=== PATIENT | female | born 1960 | race Caucasian/White ===

== ENCOUNTER 2024-02-24 10:33 | Outpatient (AMB) | payer MEDICARE, SELFPAY ==
--- NOTE | 2024-02-24 11:25 | MHC.OFFVIS ---
Vital Signs 02/24/24 11:29 Height 5 ft 5 in Weight 142 lb 13.753 oz BMI 23.8 BP 124/80 Blood Pressure Location Lt brachial Position Sitting Pulse 86 Pulse Source Pulse Oximeter Temp 97 F Intake Visit Reasons: SS/CM Intake Note: Patient is here for follow up appointment for Sjogren's and osteoarthritis. Allergies oxycodone Allergy (Severe, Verified 02/24/24 11:33) short of breath esomeprazole Adverse Reaction (Mild, Verified 02/24/24 11:33) darkened urine cefzil Allergy (Mild, Uncoded 02/24/24 11:33) rash arithrimycin Allergy (Unknown, Uncoded 02/24/24 11:33) Rash HPI HPI SS/CM: Details: She has been experiencing dry mouth. She has been using Savella mean 30 mg b.i.d. with benefit. She is able to swallow better. During the summer time she was having excessive sweating which has been bothering her since being on Cevimeline . In the past she has not found benefit on pilocarpine. She has also tried [id number] options for dry mouth such as Biotene products without benefit. She is experiencing generalized pain and hand pain intermittently. Denies any joint swelling. She was recently diagnosed with vaginal lichen planus and has been treated with topical steroid with benefit. Denies any new fevers, recent infections, Raynaud's phenomenon or any new rashes. [facility] Medical History (Updated 02/24/24 @ 22:23 by Pranav Soto MD) H/O Sjogren's disease Surgical History (Updated 02/24/24 @ 11:40 by Khushboo Conklin CMA) H/O dilation and curettage Hx of cholecystectomy [place] teeth removed Family History (Updated 02/24/24 @ 11:43 by Khushboo Conklin CMA) Mother Osteoarthritis Osteoporosis Hypertension Glaucoma Father Hypertension Osteoporosis Heart disease Brother Hypertension Multiple myeloma Review of Systems Const All systems reviewed & are unremarkable except as noted in HPI and below Physical Exam Vital Signs: Last Vital Signs Temp 97 F 02/24/24 11:29 Pulse 86 02/24/24 11:29 BP 124/80 02/24/24 11:29 BMI result Body Mass Index 23.8 Const Other: General: Comfortable CVS: RRR Respiratory: clear to auscultation bilaterally. Good respiratory effort Skin: No lesions seen Lymph nodes: No cervical lymphadenopathy present MSK: No tenderness of any joints. No synovitis. Good range of motion upper extremity and lower extremity. Assessment & Plan Assessment & Plan (1) Sjogren syndrome: Comment: History of Sjogren syndrome biopsy-proven with negative serologies CRISTOBAL/SSA/SSB. Pilocarpine ineffective for dry mouth. Cevimeline 01/10/2023 to present provides benefit because his diaphoresis, which is tolerable at this time. Code(s): M35.00 - Sjogren syndrome, unspecified Category: Medical Qualifiers: Sjogren organ or system involvement: without extraglandular involvement Qualified Code(s): M35.00 - Sjogren syndrome, unspecified Plan: Continue cevimeline 30 mg b.i.d. Labs for disease monitoring ordered She will continue to follow up with Ophthalmology for management of dry eyes Return to clinic in 3 months (2) Osteoarthritis of hands, bilateral: Comment: Clinical diagnosis with subluxation of 5th DIPs with Heberden nodes left hand. She has had benefit with diclofenac gel and OT. No synovitis on exam to suggest active inflammatory arthritis secondary to Sjogren syndrome. Code(s): M19.041 - Primary osteoarthritis, right hand; M19.042 - Primary osteoarthritis, left hand Category: Medical Qualifiers: Osteoarthritis type: primary Qualified Code(s): M19.041 - Primary osteoarthritis, right hand; M19.042 - Primary osteoarthritis, left hand Plan: Continue to use diclofenac gel as needed We discussed importance of having a regular exercise program. She will be more consistent with exercises learned from occupational therapy. I also recommended looking into the schedule of her local senior center for exercise classes. 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: Code(s): Z79.899 - Other fdc (current) drug therapy Category: Medical Plan: See above Orders: Orders Alanine Aminotransferase Today M35.00 - Sjogren syndrome, unspecified Aspartate Amino Transferase Today M35.00 - Sjogren syndrome, unspecified Complement C3 Today M35.00 - Sjogren syndrome, unspecified Erythrocyte Sedimentation Rate Today M35.00 - Sjogren syndrome, unspecified Creatinine Today M35.00 - Sjogren syndrome, unspecified C Reactive Protein Today M35.00 - Sjogren syndrome, unspecified Complement C4 Today M35.00 - Sjogren syndrome, unspecified Complete Blood Count Auto Diff Today M35.00 - Sjogren syndrome, unspecified Medications: New cevimeline 1 cap PO BID 90 caps 3RF Coding Level of Care Code Est Pt Level 4 (15647) Complex EM visit Add On G2211 Diagnoses Sjogren's syndrome without extraglandular involvement M35.00 Sjogren organ or system involvement: without extraglandular involvement Primary osteoarthritis of both hands M19.041; M19.042 Osteoarthritis type: primary 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
[2024-02-24 11:29] VITALS: BP 124/80; PULSE 86; TEMP 36.1; BMI 23.8
--- OUTSIDE RECORDS SUMMARY | 2024-03-02 12:40 | XMS_ITS | Continuity of Care Document ---
Author Organization [facility] Address [address] [place] [address] Phone Care Team Providers Care Schedule Supervisor Name Role Phone Laurent PEDERSON, Vinny Unavailable Unavailable Allergies, Adverse Reactions, Alerts Substance Reaction Status Criticality MOXIFLOXACIN HCL Active No Informat ion DEMECLOCYCLINE HCL Active No Inform ation lansoprazole Active No Information erythromycin base Active No Informa tion cefprozil Active No Information Medications Medication Instructions Dosage Effective Dates (start - stop) Status Comments Systane Ultra 0.4 %-0.3 % eye drops - Active prednisone 5 mg tablet - Active Symbicort 80 mcg-4.5 mcg/actuation HFA aerosol inhaler - Active CLARITIN (unknown strength) Not Available - Active VITAMIN D3 (unknown strength) Not Available - Active Procedures Procedure Date OFFICE/OUTPATIENT VISIT, EST Ophthal DX Image Post Retina I And R Uni Or Bi OFFICE/OUTPATIENT VISIT, NEW Advance Directives Directive Yes / No Effective Date File Name No Information Encounters Encounter Description Practice Location Reason(s) For Visit Diagnoses Date Provider Providers Copied on Encounter OFFICE/OUTPA TIENT VISIT, EST 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 [address] [place], [id number] . [phone] Specialist: Dwayne Rausch, [address] [place], [address]. tel:[phone] Provider: Eh Perez, [address] [facility], [place], [address]. tel:[phone] ring Provider: No Ref Doc No Referring Doc. OFFICE/OUTPA TIENT VISIT, NEW [facility], [address] [place], [address], tel:[phone] [facility] VISUAL DISTURBANCES NECLENS REPLACEMENT NECHistoplasmosis with chorioretinitisVITRE OUS DEGENERATIONALLERGY, UNSPECIFIEDBLEPHARIT IS NOS 4 Miracle Rice. [address] [place], [place], [id number] , . [phone] Referring Provider: Moy Landon P, [address] [facility] [address], [place], [address]. tel:[phone] Family History Family Member Type Diagnosis Age At Onset Brother Problem (finding) Retinal disease Brother Problem (finding) cataract Father Problem (finding) cataract Mother Problem (finding) Retinal disease Father Problem (finding) Retinal disease Mother Problem (finding) cataract Mother Problem (finding) Cancer Mother Problem (finding) glaucoma Payers Payer name Insurance type Covered constitution party ID Theodora jimenez(s) [employer] - [id number] Social History Type Description Quantity Date Captured Comments Alcohol Use Details No Caffeine Use Details Unknown Tobacco Use Status Never smoked tobacco 2014 Smoking Status Never smoker Non-Smoking Tobacco Use Details : No Details Available : No Details Available Sex Female Chief Complaint And Reason For Visit From encounter dated '06/30/2014 13:00'. retinal exam (chief complaint). Description: The 53 year old female presents for evaluation of retinal exam in the right and left eyes. It started about 1-2 years ago. The onset was progressive. It happens all of the time. The patient feels it is moderate. The condition is described as blurry vision ou. Patient denies flashes. Associated symptoms include: floaters ou. Patient has a history of cataract surgery ou and yag laser os x 2 in last year with Dr. Perez. Per pateint she has also had PVDou and is still having issues from this and from cataract surgery. She feels that there is a constant variable cloudiness that moves around. Reason For Referral Reason For Referral No Information History Of Present Illness Encounter Date Complaint History Of Prese nt Illness retinal exam The 53 year old female presents for evaluation of retinal exam in the right and left eyes. It started about 1-2 years ago. The onset was progressive. It happens all of the time. The patient feels it is moderate. The condition is described as blurry vision ou. Patient denies flashes. Associated symptoms include: floaters ou. Patient has a history of cataract surgery ou and yag laser os x 2 in last year with Dr. Perez. Per pateint she has also had PVD ou and is still having issues from this and from cataract surgery. She feels that there is a constant variable cloudiness that moves around. Functional Status Date Functional Assessmen t No Information Instructions Date Instruction Additional Infor noelle - PRN to [facility] retina service, follow up with Dr. Perez in [place] Related to See impression details - Reviewed the natur al history of ERM and vitreoretinal interface disorders. Recommended AMSLER screening. Patient to call if any change in visual functioning. Discussed options for managment including observation versus surgery. Discussed benefits, risks, alternatives and complications of surgery versus continued observation but given 20/20 vision and no distortion suggest conservative approach. Macular HB OCT OU. [facility] natural history reviewed and discussed treatment options Discussed use of regular Amsler screening. Instructed patient to call for Amsler change. HB Macular OCT OU. Reviewed the natural history of PVD vitreous changes along with symptoms of floaters and flashing lights. Discussed risk of retinal tear or detachment. Retinal detachment and retinal tear symptoms reviewed. Suggest conservative approach to floaters, discussed options of elective PPV for chronic visually disabling floaters. Suggest continued followup in [place] with her primary eye doctor. Related to See impression details - VISUAL DISTURBANCE S (blurred va) NEC OS- Pseudophakia OU- Histoplasmosis with chorioretinitis OS- VITREOUS DEGENERATION OU- Allergic OU- BLEPHARITIS NOS OU - OU: Educational materials provided:Primary Diagnosis. Her cataract surgeon in [place] recommended enlarging posterior capsulotomy OS - agree the same. Patient has a benign vitreous detachment OU. This may cause floaters and light flashes but is due to a normal condition which occurs over time. Signs and symtpoms of retinal detachment discussed in detail. Patient told to return immediately should symptoms increase. May want retinal consult here regarding floaters. For allergies, d/c Claritan and start Singulair (generic) 10mg qd po, add Lastacaft (sample/coupon given) qd OU. For blepharitis use Dry Eye Marks Benefits - 2 capsules before breakfast/dinner, cont Systane Ultra gtt qid OU. Patient given copy of todays visit. 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
== END 2024-02-24 12:25 | disposition home or self-care (01) ==
PROVIDERS: PCP Internal Medicine; Visit Provider Internal Medicine Rheumatology
DX: M35.00 Sjogren syndrome, unspecified (principal); M19.041 Primary osteoarthritis, right hand; M19.042 Primary osteoarthritis, left hand; Z79.899 Other long term (current) drug therapy
CPT/HCPCS: 99214; G2211

== ENCOUNTER → 2024-02-24 10:33 | Outpatient (BNVA) | payer MEDICARE, SELFPAY | PROVIDERS: PCP Internal Medicine; Visit Provider Internal Medicine Rheumatology | DX: M35.00 Sjogren syndrome, unspecified (principal); M19.042 Primary osteoarthritis, left hand; M19.041 Primary osteoarthritis, right hand; Z79.899 Other long term (current) drug therapy | CPT/HCPCS: 99212 ==

== ENCOUNTER 2024-05-26 10:34 | Outpatient (AMB) | payer MEDICARE, SELFPAY ==
--- NOTE | 2024-05-26 10:36 | MHC.OFFVIS ---
Vital Signs 05/26/24 10:37 Height 5 ft 5 in Weight 142 lb 10.225 oz BMI 23.7 BP 110/80 Blood Pressure Location Lt brachial Position Sitting Pulse 90 Pulse Source Pulse Oximeter Pulse Oximetry (%) 99 Intake Visit Reasons: Follow Up 3mo Intake Note: Patient is here for follow up appointment for Sjogren's and osteoarthritis. Allergies oxycodone Allergy (Severe, Verified 05/26/24 10:36) short of breath esomeprazole Adverse Reaction (Mild, Verified 05/26/24 10:36) darkened urine cefzil Allergy (Mild, Uncoded 02/24/24 11:33) rash arithrimycin Allergy (Unknown, Uncoded 02/24/24 11:33) Rash HPI HPI Follow Up 3mo: Details: She had increase pain with last snow storm. She has been doing exercises learned from OT. Uses heated mits. She is getting over heated with light exercise at home such as doing house chores. Dry mouth is worse. Without cevemiline she has difficulty talking and swallowing. Dx vaginal lichen sclerosis a few months ago with vaginal dryness PFSH Medical History H/O Sjogren's disease Surgical History H/O dilation and curettage Hx of cholecystectomy [place] teeth removed Family History (Updated 05/26/24 @ 10:45 by Vanessa Sanchez CMA) Mother Osteoarthritis Osteoporosis Hypertension Glaucoma Father Hypertension Osteoporosis Heart disease Brother Hypertension Multiple myeloma Review of Systems Const All systems reviewed & are unremarkable except as noted in HPI and below Physical Exam Vital Signs: Last Vital Signs Pulse 90 05/26/24 10:37 BP 110/80 05/26/24 10:37 Pulse Ox 99 05/26/24 10:37 BMI result Body Mass Index 23.7 Const Other: General: Comfortable CVS: RRR Oral: White coating on tongue Respiratory: clear to auscultation bilaterally. Good respiratory effort Skin: No lesions seen Lymph nodes: No cervical lymphadenopathy present MSK: No tenderness of any joints. Heberden nodes present. No synovitis. Good range of motion upper extremity and lower extremity. Assessment & Plan Assessment & Plan (1) Sjogren syndrome: Comment: Dry mouth and swallowing has improved with cevimeline. She continues to have diaphoresis with activity as side effect of cevimeline but it is tolerable. She has a white coating on tongue that represents dehydration. I am not concerned about oral lichen planus or thrush. Rheumatology History: Sjogren syndrome biopsy-proven with negative serologies CRISTOBAL/SSA/SSB. Pilocarpine ineffective for dry mouth and caused diaphoresis. Biotene products in effective. Cevimeline 01/10/2023 to present provides benefit because his diaphoresis, which is tolerable at this time. Code(s): M35.00 - Sjogren syndrome, unspecified Category: Medical Qualifiers: Sjogren organ or system involvement: without extraglandular involvement Qualified Code(s): M35.00 - Sjogren syndrome, unspecified Plan: She will try Biotene toothpaste. A this time she uses tooth paste recommended by dentist for dry mouth She will try XyliMelts Continue cevimeline 30 mg BID Continue hydration Continue daily dental hygiene and regular dental checkups for cavity prevention and cleaning Follow up with Ophthalmology for dry eye management Labs for disease monitoring reviewed 03/01/2024. SPEP ordered today. Return to clinic in 3 months Orders: Orders Protein Electrophoresis, Serum 05/26/24 M35.00 - Sjogren syndrome, unspecified Coding Level of Care Code Est Pt Level 4 (68945) Complex EM visit Add On G2211 Diagnoses Sjogren's syndrome without extraglandular involvement M35.00 Sjogren organ or system involvement: without extraglandular involvement
[2024-05-26 10:37] VITALS: BP 110/80; PULSE 90; O2SAT 99; BMI 23.7
== END 2024-05-26 11:27 | disposition home or self-care (01) ==
PROVIDERS: PCP Internal Medicine; Visit Provider Internal Medicine Rheumatology
DX: M35.00 Sjogren syndrome, unspecified (principal)
CPT/HCPCS: 99214; G2211

== ENCOUNTER 2024-05-26 10:34 | Outpatient (REF) | payer MEDICARE, SELFPAY ==
--- OUTSIDE RECORDS SUMMARY | 2024-05-26 13:58 | XMS_ITS | Data Portability ---
Author Organization [facility], Telehealth Address [address] [facility] [place] [address] Assessment No assessment recorded. Plan of Treatment Reminders Order Date Submit Date Provider Last Modified By Organization Details Last Modified Time Details Appointments None recorded. Lab None recorded. Referral None recorded. Procedures None recorded. Surgeries None recorded. Imaging None recorded. Medication Orders amoxicilli n 875 mg tablet 2018 019 [id number], [address] [place], [address], 9 13:45:51 prednisone 20 mg tablet 2018 019 [id number], [address] [place], [address], 9 15:55:48 Patient TargetsNo targets recorded. Patient InstructionsNo instructions recorded. Reason for Referral None Reported. Problems Name Problem SNOMED Code Status Onset Date Resolution Date Notes Provider Name and Address Organization Details Recorded Time Disorder of gallbladder 96932737 [facility] 9 13:17:56 Problem Notes None recorded. Medical Equipment None Reported. Allergies Allergen ID Allergen Name Allergen Category Reaction Reaction Severity Criticality Documentation Date Start Date Code Code System Note Provider Name and Address Organization Details Recorded Time 665 Cefzil medicatio n hives severe Not available 08/10/2018 41821 1 RxNorm Not Available Not Available Not Available 666 acetamino phen / hydrocodo ne medicatio n other severe Not available 08/10/2018 12318 2 RxNorm Not Available Not Available Not Available 667 Prevacid medicatio n hives severe Not available 08/10/2018 70779 RxNorm Not Available Not Available Not Available Medications Name Sig Start Date Stop Date Status Note LastModified by Organization Details LastModified Time prednisone 20 mg tablet Take 2 tablets every day by oral route for 5 days. 019 active Not Available Not Available Not Avai lable amoxicillin 875 mg tablet Take 1 tablet every 12 hours by oral route for 10 days. 019 active Not Available Not Available Not Avai lable Vitals Date Recorded Body height Body mass index (BMI) Body weight Body temperature Oxygen saturation Oxygen saturation in Arterial blood by Pulse oximetry Heart rate Systolic blood pressure Diastolic blood pressure Provider Name and Address Organization Details Last Updated DateTime 9 167.64 cm 21.3 kg/m2 33112.1 9 g 98.9 [degF] 93 % 93 % 87 /min 118 mm[Hg] 80 mm[Hg] Ayana Wade [facility] 9 13:22:01 Social History Question Answer Notes LastModified by Organizat ion Details LastModified Time Tobacco Smoking Status Never Smoker Ayana dickerson, [facility] 08/10/2018 13:18:57 What Is Your Level Of Alcohol Consumption? None [email or web address] Information not available 08/10/2018 What Was The Date Of Your Most Recent Tobacco Screening? 08/10/2018 Information n ot available 10/15/2018 Sex: Unknown Functional Status None recorded. Mental Status None recorded. Family History Relationship Description Onset Age of this Age Resolved Age Notes LastModified by Organization Details LastModified Time Unspecified Relation Heart disease [email or web address] Not available 08/10 13:19:16 Medical History No medical history recorded. Gynecological HistoryNo gynecological history recorded. Obstetrics History GPAL:G 0 P 0 0 0 0 Past Encounters Encounter ID Performer Location Encounter Start Date Encounter Closed Date Diagnosis/Indication Diagnosis SNOMED-CT Code Diagnosis ICD10 Code Diagnosis Note [id number] Poncho Bryant PA-C [facility] [address] [place] [address] 08/10/2018 12:54:08 08/10/2018 13:48:45 Acute right otitis media 491714043 H66.91 patient reports a lot of GI sensitivit ies to a variety of antibiotic s so she refuses to use augmentin, azithromyc in, doxy and she has an allergy to cephalospo rins. Health Concerns Section Related Observation LastModified by Organization Detai ls LastModified Time None Recorded Concern Status LastModified by Organization Details LastModified Time None Recorded Advance Directives Directive None Recorded Payers Encounter Date Sequence Insurance Name Policy Number Policy Nichole Covered Member ID Nichole Member ID Guarantor Name 08/10/2018 1 [employer] [id number] Bronwyn Samuels [id number] Bronwyn Samuels Notes Date Note Type Note Provider Name and Address Organization Details Recorded Time 08/10/2018 text/html EaracheReported bypatient.Location:[facility] Quality:aching; throbbing History of recurrent ear infections and serous otitis media, right sided neurosensory hearing loss, being followed by ENT. Had infection about a week before flying down here, ENT stated fluid and infection was gone prior to flying, however she started to have some fullness in the right ear and the fligth was extremely painful for her. Pain is still moderate to severe at times, feels clogged, as mentioned she has baseline hearing loss in that side already but reports more hearing loss right now. Denies fever, chills, bodyaches, runny nose, cough. Poncho Bryant PA-C [address] [place], [address], [facility] - [facility] 08/11/2018 13:42:33 OBGyn Episode No OBEpisode recorded.
[2024-05-27 22:03] LABS: Prot Elec - Albumin 4.2 g/dL (3.8-4.8); Prot Elec - Alpha1 0.3 g/dL (0.2-0.3); Prot Elec - Alpha2 0.8 g/dL (0.5-0.9); Prot Elec - Beta 1 0.4 g/dL (0.4-0.6); Prot Elec - Beta 2 0.4 g/dL (0.2-0.5)
== END 2024-05-26 10:35 | disposition home or self-care (01) ==
LOC: HO.HKASLDS 10:34
PROVIDERS: PCP Internal Medicine; Visit Provider Internal Medicine Rheumatology
DX: M35.00 Sjogren syndrome, unspecified (principal)
CPT/HCPCS: 36415; 84165; 99212

== ENCOUNTER 2024-09-14 13:53 | Outpatient (REF) | payer MEDICARE, SELFPAY ==
[2024-09-14 18:51] LABS: C Reactive Protein 0.11 mg/dL (< or = 0.50); Magnesium 2.2 mg/dL (1.6-2.6)
[2024-09-14 20:10] LABS: Erythrocyte Sedimentation Rate 8 MM/HR (0-20)
== END 2024-09-14 13:54 | disposition home or self-care (01) ==
LOC: HO.HKASLDS 13:53
PROVIDERS: PCP Internal Medicine; Visit Provider Internal Medicine Rheumatology
DX: R25.2 Cramp and spasm (principal); M35.00 Sjogren syndrome, unspecified; Z79.899 Other long term (current) drug therapy
CPT/HCPCS: 36415; 82310; 83735; 84132; 85652; 86140; 99212

== ENCOUNTER 2024-09-14 13:53 | Outpatient (AMB) | payer MEDICARE, SELFPAY ==
[2024-09-14 13:53] VITALS: BP 120/72; PULSE 105; O2SAT 98; BMI 23.5
--- NOTE | 2024-09-14 13:53 | A.OFFVIS_ITS ---
Vital Signs 09/14/24 13:53 Height 5 ft 5 in Weight 141 lb BMI 23.5 BP 120/72 Blood Pressure Location Lt brachial Position Sitting Pulse 105 H Pulse Source Pulse Oximeter Pulse Oximetry (%) 98 Oxygen Delivery Method Room Air Intake Visit Reasons: 3 months Intake Note: Patient is here for follow up appointment for Sjogren's and osteoarthritis. Accompanied by: Self / Same As Patient Allergies oxycodone Allergy (Severe, Verified 09/14/24 13:54) short of breath esomeprazole Adverse Reaction (Mild, Verified 09/14/24 13:54) darkened urine cefzil Allergy (Mild, Uncoded 02/24/24 11:33) rash arithrimycin Allergy (Unknown, Uncoded 02/24/24 11:33) Rash HPI HPI 3 months: Details: Hands are cramping. 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 Dry mouth is not controlled. She did not like the way xylimelts felt. Couldn't keep xylimelts sticking to her mucosa. Biotene toothpaste was ineffective. She is tolerating palpitation and diaphoresis that she experiences on cevimeline. General stiffness when getting up and walking. It used to go away but it lasts all day now. Walks regularly when weather allows. [facility] Medical History (Updated 09/14/24 @ 16:15 by Pranav Soto MD) Chronic paronychia of finger Lichen sclerosus H/O Sjogren's disease Surgical History H/O dilation and curettage Hx of cholecystectomy [place] teeth removed Family History Mother Osteoarthritis Osteoporosis Hypertension Glaucoma Father Hypertension Osteoporosis Heart disease Brother Hypertension Multiple myeloma Physical Exam Vital Signs: Last Vital Signs Pulse 105 H 09/14/24 13:53 BP 120/72 09/14/24 13:53 Pulse Ox 98 09/14/24 13:53 Oxygen Delivery Method Room Air 09/14/24 13:53 BMI result Body Mass Index 23.5 Const Other: General: Comfortable CVS: RRR Respiratory: clear to auscultation bilaterally. Good respiratory effort Skin: No lesions seen Lymph nodes: No cervical lymphadenopathy present MSK: No tenderness of any joints. [place] nodes present. No synovitis. Good range of motion upper extremity and lower extremity. 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 Assessment & Plan Assessment & Plan (1) Sjogren syndrome: Comment: Dry mouth and swallowing has improved with cevimeline. She continues to have diaphoresis and palpitations with activity as side effect of cevimeline but it is tolerable. She is followed by Cardiology who recommended that she hydrate throughout the day and has provided her with recommendations for alternatives to drinking water. I discussed that she can skip 1 or 2 doses of cevimeline on consecutive days in the morning when she is experiencing diaphoresis and palpitations that she can not tolerate. Symptoms are worse in the summer due to hot temperatures. She benefits from the dose before bedtime as her symptoms are worse at night. When she was not on cevimeline she had difficulty swallowing, which has not been an issue for her at this time while on treatment. She is experiencing generalized morning stiffness lasting all day. On exam she does not have any signs of inflammatory arthritis associated with Sjogren syndrome. Rheumatology History: Sjogren syndrome biopsy-proven with negative serologies CRISTOBAL/SSA/SSB. Pilocarpine ineffective for dry mouth and caused diaphoresis. Biotene products in effective. Cevimeline 01/10/2023 to present provides benefit because his diaphoresis, which is tolerable at this time. She did not like the taste of xylimelts. Biotene losenges at our gum provides temporary relief. Biotene mouthwash, tooth paste, mouth spray was ineffective. Code(s): M35.00 - Sjogren syndrome, unspecified Category: Medical Qualifiers: Sjogren organ or system involvement: without extraglandular involvement Qualified Code(s): M35.00 - Sjogren syndrome, unspecified Plan: Inflammatory markers ordered Try OTC ACT products for dry mouth Continue cevimeline 30 mg BID. She will skip morning dose when diap horesis/palpitations are not tolerable especially in the hot weather Continue hydration Continue daily dental hygiene and regular dental checkups for cavity prevention and cleaning Follow up with Ophthalmology for dry eye management Labs for disease monitoring reviewed 03/01/2024. SPEP 05/2024 within normal limits. Labs due yearly prior to next appointment We discussed the importance of having a regular exercise program. I encouraged her to check out her local [facility] and [facility] for their monthly program. We also discussed looking into yoga and YouTube for videos that she can do at home regularly. Goal to do 30 minutes of exercise daily in addition to her walks/treadmill Return to clinic in 6 months or sooner if needed (2) Muscle cramp: Comment: Intermittent hand cramping. She hydrates well. I will rule out electrolyte disturbance with labs. Code(s): R25.2 - Cramp and spasm Category: Medical Plan: Electrolytes ordered. If electrolytes are normal, I will add OT for hand strengthening program Return to clinic in 6 months or sooner if needed Orders: Orders Erythrocyte Sedimentation Rate Today R25.2 - Cramp and spasm, Z79.899 - Other residential (current) drug therapy C Reactive Protein Today R25.2 - Cramp and spasm, Z79.899 - Other terminal manager (current) drug therapy Magnesium Today R25.2 - Cramp and spasm Creatinine 6 Months M35.00 - Sjogren syndrome, unspecified C Reactive Protein 6 Months M35.00 - Sjogren syndrome, unspecified Erythrocyte Sedimentation Rate 6 Months M35.00 - Sjogren syndrome, unspecified Complement C3 6 Months M35.00 - Sjogren syndrome, unspecified Rheumatoid Factor 6 Months M35.00 - Sjogren syndrome, unspecified Potassium Today R25.2 - Cramp and spasm Calcium Today R25.2 - Cramp and spasm Complete Blood Count Man Dif 6 Months M35.00 - Sjogren syndrome, unspecified Alanine Aminotransferase 6 Months M35.00 - Sjogren syndrome, unspecified Aspartate Amino Transferase 6 Months M35.00 - Sjogren syndrome, unspecified Complement C4 6 Months M35.00 - Sjogren syndrome, unspecified Protein Electrophoresis, Serum 1 Year M35.00 - Sjogren syndrome, unspecified Coding Level of Care Code Est Pt Level 4 (95398) Complex EM visit Add On G2211 Diagnoses Sjogren's syndrome without extraglandular involvement M35.00 Sjogren organ or system involvement: without extraglandular involvement Muscle cramp R25.2 Time Spent (min) 30
--- OUTSIDE RECORDS SUMMARY | 2024-09-14 16:32 | XMS_ITS | Data Portability ---
Author Organization [place] - [facility], Allergy Address [address] [address] Care Team Providers Care Revenue Field Auditor Name Role Phone DELMIS COLLIER Primary Care Provider [phone] Assessment Encounter Date Assessment Date Assessment LastModified by Organization Details LastModified Time 07/16/2024 07/16/2024 63-year-old female with history of right sided sudden hearing loss in 2017 presents for routine ear cleaning. Cerumen impaction removed bilaterally. Bilateral TMs are intact and scarred with aerated middle ear spaces. She will follow up with Dr. Smith as scheduled. [email or web address] Not available 07/16/2024 14:11:32 08/02/2024 08/02/2024 63yo female with history of right-sided sudden hearing loss, BPPV, and tinnitus presents for evaluation of the ears. She has had constant right sided ear pressure since sudden hearing loss in 2017. She endorses bilateral otalgia, worse positional vertigo, and tinnitus for 4 days since ear cleaning in our office. No improvement with vestibular physical therapy. Otologic exam demonstrates right TM with general retraction, otherwise normal to inspection. Mild neurosensory hearing loss is stable and tympanometry is normal. Recommend continuing vestibular rehabilitation. Will send short course of oral prednisone for suspected eustachian tube dysfunction, and she will continue fluticasone. Patient also evaluated by Dr. Wise. [email or web address] Not available 08/04/2024 06:42:41 08/26/2024 08/26/2024 Patient continues to be frustrated with tinnitus. Discussed some hearing aids have masking settings. She will follow-up with [place] to discuss what features are available on her current aids. Interestingly her hearing has improved and she no longer needs to use the amplification settings. Her fluttering of eustachian tube is not clearly related to her Sjogren's. There is no specific intervention I have for it at this time. At the end of the visit patient request that I examine her back for I appreciated a 5 x 10 cm triangle of raised red papules consistent with shingles. Prescribed valacyclovir 1 g 3 times daily x 7 days [email or web address] Not available 08/26/2024 15:18:12 Plan of Treatment Reminders Order Date Submit Date Provider Last Modified By Organization Details Last Modified Time Details Appointments None recorded. Lab None recorded. Referral None recorded. Procedures None recorded. Surgeries None recorded. Imaging None recorded. Medication Orders valacyclovi r 1 gram tablet 2024 025 [facility]armacy #[id number], [address] [place], [address], 5 15:15:25 prednisone 20 mg tablet 2024 025 [facility]armacy #[id number], [address] [place], [address], 5 14:52:23 Patient TargetsNo targets recorded. Patient InstructionsNo instructions recorded. Reason for Referral None Reported. Results Created Date Observation Date Name Description Value Unit Range Abnormal Flag Note LastModifiedBy Organization Detail LastModifiedTime 08/03/19 25 audio gram No observ ation record ed. BARCODE Not Available 2024 15:52:35 Result Notes None recorded. Problems Name Problem SNOMED Code Status Onset Date Resolution Date Notes Provider Name and Address Organization Details Recorded Time Stomatiti s 84348055 Active 2016 Oral thrush; Note: Date Diagnosed : 11/07/2016 11:17 AM (B37.0) Not Available [facility] 4 02:57:54 Candidias is of mouth 81889168 Active 2016 Oral thrush; Note: Date Diagnosed : 11/07/2016 11:17 AM (B37.0) Not Available [facility] 4 02:57:54 Headache 46156693 Active 2018 Facial pain NOS; Note: Date Diagnosed : 09/08/2018 3:59 PM (R51) Not Available [facility] 4 02:57:55 Chronic sialadeni tis 205172925 Active 2022 Chronic sialoaden itis; Note: Date Diagnosed : 05/01/2022 10:34 AM (K11.23) Not Available [facility] 4 02:57:55 Tinnitus of right ear 24587656190 08 Active 2016 Tinnitus, right ear; Note: Date Diagnosed : 12/30/2016 2:55 PM (H93.11) Not Available [facility] 4 02:57:53 Acute serous otitis media of right ear 37483722313 62165 Active 2018 Acute serous otitis media, right ear; Note: Date Diagnosed : 07/02/2018 12:44 PM (H65.01) Not Available [facility] 4 02:57:54 Nasal congestio n 03291928 Active 2018 Nasal congestio n; Note: Date Diagnosed : 07/02/2018 12:44 PM (R09.81) Not Available [facility] 4 02:57:55 Impacted cerumen of bilateral ears 17692532441 84577 Active 2017 Impacted cerumen, bilateral ; Note: Date Diagnosed : 12/26/2017 1:13 PM (H61.23) Not Available [facility] 4 02:57:53 Sensorine ural hearing loss 37714555 Active 2016 Sensorine ural hearing loss, unilatera l, right ear, with unrestric lissett hearing on the contralat eral side; Note: Date Diagnosed : 07/26/2016 4:17 PM (H90.41) Not Available [facility] 4 02:57:55 Acute maxillary sinusitis 42269787 Active 2019 Acute maxillary sinusitis , unspecifi ed; Note: Date Diagnosed : 07/23/2019 2:32 PM (J01.00) Not Available [facility] 4 02:57:56 Otalgia of right ear 4272828108 Active 2018 Otalgia, right ear; Note: Date Diagnosed : 08/24/2018 2:42 PM (H92.01) Not Available [facility] 4 02:57:55 Abnormal auditory perceptio n 85400413 Active 2018 Other abnormal auditory perceptio ns, unspecifi ed ear; Note: Date Diagnosed : 05/21/2018 12:08 PM (H93.299) Not Available [facility] 4 02:57:56 Acute sinusitis 14039656 Active 2018 Other acute sinusitis ; Note: Date Diagnosed : 07/02/2018 12:44 PM (J01.80) Not Available [facility] 4 02:57:53 Gastroeso phageal reflux disease without esophagit is 401747587 Active 2017 Gastro-es ophageal reflux disease without esophagit is; Note: Date Diagnosed : 06/13/2017 4:38 PM (K21.9) Not Available [facility] 4 02:57:52 Bleeding from nose 161443536 Active 2016 Epistaxis ; Note: Date Diagnosed : 12/30/2016 2:55 PM (R04.0) Not Available [facility] 4 02:57:54 Disorder of right Eustachia n tube 57208094372 45750 Active 2018 Other specified disorders of Eustachia n tube, right ear; Note: Date Diagnosed : 08/24/2018 2:42 PM (H69.81) Not Available [facility] 4 02:57:54 COVID-19 270831232 Active 2022 COVID-19; Note: Date Diagnosed : 05/01/2022 10:34 AM (U07.1) Not Available [facility] 4 02:57:56 Allergic rhinitis 14891666 Active 2019 Other allergic rhinitis; Note: Date Diagnosed : 07/23/2019 2:39 PM (J30.89) Not Available [facility] 4 02:57:56 Sensorine ural hearing loss of bilateral ears 798198342 Active 2024 YULI GARLAND, [facility] 100 [facility] 100, [facility] ellie, [place], [address] , [facility] 5 13:25:20 Hypertrop hy of nasal turbinate s 90896577 Active 2024 BRITTNEY BARNETT PA-C [address], [place], [place], [address] , [facility] - [facility] [place] 5 14:19:05 Moderate persisten t asthma 887128854 Active 2024 BRITTNEY BARNTET PA-C [address], [place], [address] , [facility] - [facility] 5 14:19:05 Chronic sinusitis 17714764 Active 2024 BRITTNEY BARNETT PA-C [address], [place], [address] , [facility] - [facility] 5 14:19:05 Polyp of nasal cavity 851533300 Active 2024 BRITTNEY BARNETT PA-C [address], [place], [place], [address] , [facility] - [facility] 5 14:19:05 Deviated nasal septum 857919087 Active 2024 BRITTNEY BARNETT PA-C [address], [place], [place], [address] , [facility] - [facility] 5 14:19:05 Polypoid sinus degenerat ion 25756766 Active 2024 BRITTNEY BARNETT PA-C [address], [place], [address] , [facility] - [facility] 5 14:19:05 Seasonal allergic rhinitis 124188556 Active 2024 BRITTNEY BARNETT PA-C [address], [place], [address] , [facility] - [facility] 5 14:19:05 Non-aller gic rhinitis 32692976384 1 Active 2024 BRITTNEY BARNETT PA-C [address], [place], [address] , [facility] - [facility] 14:19:05 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, [address] , [facility] - [facility] 14:50:36 Bilateral tinnitus 62625038820 02 Active 2024 CHAPO SMITH MD [address] [facility],[place] [address], [place], [address] , [facility] - [facility] 15:12:07 Herpes zoster 2747693 Active 2024 CHAPO SMITH MD [address] [facility],[place] [address], [place], [address] , [facility] - [facility] 15:14:31 Problem Notes None recorded. Procedures Surgical History Date Name Laterality Status Provider Name and Address Organization Details Recorded Time Comp Audio 83411 completed LESTER HUERTA [address] [facility],[place] [address], [place], [address], [facility] - [facility] 08/02/2024 13:25:10 Cerumen removal without microscope bilat completed JANNETTE HUTCHINS PA-C [address] [facility],[place] [address], [place], [address], [facility] - [facility] 07/16/2024 14:09:43 Imaging Results None recorded. Procedure Notes None recorded. Medical Equipment None Reported. Allergies Allergen ID Allergen Name Allergen Category Reaction Reaction Severity Criticality Documentation Date Start Date Code Code System Note Provider Name and Address Organization Details Recorded Time 643845 cefprozil medicatio n other Not available Not available 08/05/202396489 RxNorm React ion: unkno wn, unspe cifie d;; Not Available [facility] 01:13:58 089100 lansopraz ole medicatio n other Not available Not available 08/05/2023 70050 RxNorm React ion: unkno wn, unspe cifie d;; Not Available [facility] 4 01:14:00 288816 oxycodone medicatio n Not available Not available Not available 08/02/2024 7804 RxNorm RAYA COMI null, [place] - [facility] 5 13:41:18 007477 Prevacid medicatio n Not available Not available Not available 08/02/2024 40828 RxNorm RAYA COMI null, [place] - [facility] 5 13:41:30 512919 erythromy yajaira medicatio n Not available Not available Not available 08/02/2024 4053 RxNorm RAYA COMI null, [place] - [facility] 5 13:41:39 Medications Name Sig Start Date Stop Date Status Note LastModified by Organization Details LastModified Time methocarb poly 500 mg tablet 08/02 completed Medicati on ID: [id number] D uration Value: 30 Brand Name: methocar bamol Se nd Method: E-Prescr ibed Sub s Allowed: subs OK Speci al Instruct ion: TAKE 1 TABLET BY MOUTH TWICE A DAY OR 3 TIMES A DAY Medi cationGe nericNam e: methocar bamol Not Available Not Available Not Available nystatin 100,000 unit/mL oral suspensio n 2016 active Medicati on ID: [id number] P rescribe d By Name: KOLTON Teague nd Name: nystatin Send Method: E-Prescr ibed Sub s Allowed: subs OK Speci al Instruct ion: 5 ml swish and spit four times daily x 2 weeks Me dication GenericN bhupinder: nystatin Not Available Not Available Not Available prednison e 10 mg tablet 08/02 completed Medicati on ID: [id number] D uration Value: 14 Prescri bed By Name: Ryder Roberts nd Name: predniso ne Send Method: E-Prescr ibed Sub s Allowed: subs OK Speci al Instruct ion: 60mg day 1-9, 50mg day 10, 40mg day 11, 30mg day 12, 20mg day 13, 10mg day 14. Medi cationGe nericNam e: predniso ne Not Available Not Available Not Available fluconazo le 150 mg tablet TAKE 1 TABLET BY MOUTH ONCE FOR 1 DAY 08/02 completed Not Available Not Available Not Available valacyclo vir 1 gram tablet TAKE 1 TABLET 3 TIMES A DAY BY ORAL ROUTE FOR 7 DAYS, FOR SHINGLES . active Not Available Not Available No t Available Ativan 1 mg tablet 02/26 completed Medicati on ID: [id number] P rescribe d By Name: Chapo Smith M.D. Bra nd Name: Ativan S end Method: E-Prescr ibed Sub s Allowed: subs OK Speci al Instruct ion: Take 1 pill PO prior to imaging study PRN anxiety Medicati onGeneri cName: Ativan Not Available Not Available Not Available hydroquin one 4 % topical cream APPLY TO DARK SPOTS ON THE FACE NIGHTLY active Not Available Not Available No t Available Medrol (Mitchel) 4 mg tablets in a dose pack Take by mouth 08/02 completed Medicati on ID: [id number] B rand Name: Medrol (Mitchel) Se nd Method: E-Prescr ibed Sub s Allowed: subs OK Speci al Instruct ion: take as instruct ed [facility] (Mitchel) Not Available Not Available Not Available prednison e 20 mg tablet TAKE 2 TABLETS BY MOUTH IN THE MORNING FOR 3 DAYS 08/26 completed Not Available Not Available Not Available alendrona te 70 mg tablet TAKE 1 TABLET BY MOUTH EVERY WEEK active Not Available Not Available No t Available doxycycli ne hyclate 50 mg capsule TAKE 1 CAPSULE BY MOUTH EVERY DAY 08/02 completed Not Available Not Available Not Available Diflucan 100 mg tablet Take 1 tablet by mouth once a day 08/02 completed Medicati on ID: [id number] D uration Value: 10 Brand Name: Diflucan Send Method: E-Prescr ibed Sub s Allowed: subs OK Medic ationGen ericName : Diflucan Not Available Not Available Not Available amitripty line 10 mg tablet TAKE 1 TABLET BY MOUTH EVERYDAY AT BEDTIME active Not Available Not Available No t Available doxycycli ne monohydra te 100 mg capsule 1 capsule by mouth twice a day 08/02 completed Medicati on ID: [id number] D uration Value: 10 Prescri bed By Name: Chapo Smith M.D. Bra nd Name: doxycycl ine monohydr ate Send Method: E-Prescr ibed Sub s Allowed: subs OK Medic ationGen ericName : doxycycl ine monohydr ate Not Available Not Available Not Available nitrofura ntoin macrocrys alfonzo 100 mg capsule 2018 active Medicati on ID: [id number] D uration Value: 3 Brand Name: nitrofur antoin macrocry stal Sen d Method: E-Prescr ibed Sub s Allowed: subs OK Medic ationGen ericName : nitrofur antoin macrocry stal Not Available Not Available Not Available cevimelin e 30 mg capsule TAKE 1 CAPSULE BY MOUTH TWICE A DAY active Not Available Not Available No t Available omeprazol e 20 mg capsule,d elayed release 08/02 completed Medicati on ID: [id number] D uration Value: 30 Brand Name: omeprazo le Send Method: E-Prescr ibed Sub s Allowed: subs OK Speci al Instruct ion: TAKE ONE CAPSULE TWICE A DAY Medi cationGe nericNam e: omeprazo le Not Available Not Available Not Available monteluka st 10 mg tablet TAKE 1 TABLET BY MOUTH EVERY DAY 08/02 completed Not Available Not Available Not Available mometason e 0.1 % topical ointment APPLY A THIN LAYER TO THE AFFECTED AREA TWICE WEEKLY active Not Available Not Available No t Available mupirocin 2 % topical ointment APPLY A SMALL AMOUNT TO THE AFFECTED AREA BY TOPICAL ROUTE 3 TIMES PER DAY FOR 30 DAYS active Not Available Not Available No t Available clobetaso l 0.05 % topical ointment APPLY A THIN LAYER TO AFFECTED AREAS DAILY X4 WEEKS, EVERY OTHER DAY X4 WEEKS, TWICE WEEKLY X4 WEEKS 08/02 completed Not Available Not Available Not Available epinephri ne 0.3 mg/0.3 mL injection , auto-inje ctor USE DIRECTED FOR ANAPHYLA XIS THEN CALL 911 active Not Available Not Available No t Available estradiol 0.01% (0.1 mg/gram) vaginal cream INSERT 1 GRAM VAGINALL Y TWICE A WEEK active Not Available Not Available No t Available doxycycli ne hyclate 100 mg tablet TAKE 1 TABLET BY MOUTH TWICE A DAY FOR 7 DAYS 08/02 completed Not Available Not Available Not Available amoxicill in 875 mg-potass ium clavulana te 125 mg tablet TAKE 1 TABLET BY MOUTH EVERY 12 HOURS FOR 3 DAYS 08/02 completed Not Available Not Available Not Available Vitamin D3 25 mcg (1,000 unit) capsule 2016 active Medicati on ID: [id number] B rand Name: Vitamin D3 Send Method: E-Prescr ibed Sub s Allowed: subs OK Medic ationGen ericName : Vitamin D3 Not Available Not Available Not Available cyclobenz aprine 5 mg tablet TAKE 1+1/2 TABLETS BY MOUTH DAILY AT BEDTIME FOR 30 DAYS 08/02 completed Not Available Not Available Not Available Restasis 0.05 % eye drops in a dropperet te INSTILL 1 DROP IN EACH EYE TWICE DAILY active Not Available Not Available No t Available doxycycli ne hyclate 100 mg tablet,de layed release 08/02 completed Medicati on ID: [id number] B rand Name: doxycycl ine hyclate Send Method: E-Prescr ibed Sub s Allowed: subs OK Medic ationGen ericName : doxycycl ine hyclate Not Available Not Available Not Available Nasacort active Not Available Not Avai lable Not Available Yuvafem 10 mcg vaginal tablet INSERT 1 TABLET VAGINALL Y TWICE A WEEK active Not Available Not Available No t Available Sodium Fluoride 5000 Dry Mouth 1.1 % dental paste BRUSH ON EVERY AM & PM SPIT OUT EXCESS, DO NOT RINSE, EAT OR DRINK FOR 30 MINUTES AFTER SLS FREE* active Not Available Not Available No t Available Miebo (PF) 100 % eye drops INSTILL ONE DROP TO BOTH EYES 4 TIMES A DAY active Not Available Not Available No t Available Vitals Date Recorded Body height Body mass index (BMI) Body weight Provider Name and Address Organization Details Last Updated DateTime 07/16/2024 165.1 cm 23.3 kg/m2 33860.93 g RAYA Potter [facility] 07/16/2024 13:12:20 Date Recorded Body height Body mass index (BMI) Body weight Provider Name and Address Organization Details Last Updated DateTime 08/02/2024 165.1 cm 23.3 kg/m2 25099.93 g RAYA COMI [place] - [facility] 08/02/2024 13:41:01 Date Recorded Body height Provider Name an d Address Organization Details Last Updated DateTime 08/26/2024 165.1 cm RAYA VELÁZQUEZ [place] - [facility] [place] 08/26/2024 14:50:52 Social History None recorded. Functional Status None recorded. Mental Status None recorded. Family History Nothing Reported. Medical History No medical history recorded. Gynecological HistoryNo gynecological history recorded. Obstetrics History GPAL:G 0 P 0 0 0 0 Past Encounters Encounter ID Performer Location Encounter Start Date Encounter Closed Date Diagnosis/Indication Diagnosis SNOMED-CT Code Diagnosis ICD10 Code Diagnosis Note [id number] JANNETTE HUTCHINS PA-C [facility] [address] [address] 07/16/2024 13:02:35 07/16/2024 13:27:35 Impacted cerumen of bilateral ears 3220171895 399179 H61.23 [id number] BRITTNEY BARNETT PA-C [facility] [address] [address] 08/02/2024 13:01:30 08/02/2024 14:22:03 Sensorineural hearing loss of bilateral ears 928051844 H90.3 Audiologic al evaluation results: Right ear: Normal sloping to mild sensorineu ral hearing loss with excellent word recognitio n. Asymmetry present from 250-2kHz Left ear: Normal sloping to mild sensorineu ral hearing loss with excellent word recognitio n. Tympanomet ry: Right Ear:Type A Left Ear:Type A Abnormal a uditory perception 16786737 H93.299 [id number] CHAPO SMITH MD [facility] [address] [address] 08/26/2024 14:22:01 08/26/2024 15:16:41 Bilateral tinnitus 5021592437 102 H93.13 Herpes zoster 3803415 B0 2.9 Primary Sj gren's syndrome 378488499 M35.00 Health Concerns Section Related Observation LastModified by Organization Detai ls LastModified Time None Recorded Concern Status LastModified by Organization Details LastModified Time None Recorded Advance Directives Directive None Recorded Payers Insurance Date Sequence Insurance Name Policy Number Policy Nichole Covered Member ID Nichole Member ID Guarantor Name 08/26/2024 1 [facility]: MEDICARE PPO BLUE (MEDICARE REPLACEMENT PPO) [id number] Bronwyn Samuels [id number] Bronwyn Samuels Notes Date Note Type Note Provider Name and Address Organization Details Recorded Time 07/16/2024 text/html 63-year-old fema le with history of right sided sudden hearing loss in 2016 presents for routine ear cleaning. Had an ear infection in April. History of Sjogren's. 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 Takes Afrin and uses ear planes prior to flights. EDGAR EMERSON MD [address] [place] [address],[address], [address], [facility] 07/16/2024 14:34:17 08/02/2024 text/html 63yo female with history of right-sided sudden hearing loss in 2017, BPPV, and tinnitus presents for evaluation of disequilibrium. She has had constant right sided ear pressure since 2017. She was seen in our office 2 weeks ago for wax removal, and reports subsequent ear pain for 4 days. She also endorses associated worse positional vertigo, bilateral tinnitus, and ear popping. Denies nasal symptoms. No improvement with vestibular therapy. Continues to endorse daily room spinning dizziness when getting out of bed in the morning. ESE WISE MD [address] [place] [address],[address], [address], [facility] 08/04/2024 06:42:57 08/26/2024 text/html sinuswinter 2024 viral URI and ear infectionresponded well to prednisone and was able to travel to [facility] to get some right side block sensation.gets spastic ETD, quick tremors of the ETD open and closing 04/17/2023 CT sinus noncontrast, XoranModerate opacification left frontal sinus and recess.Anterior ethmoid air cell opacification left greater than rightMild to moderate inferior mucosal thickening left-sided sphenoid sinus PV 08/02/24 Brittney/Busekroos - dysequilibirum chronic, ETD, rx 3 days of prednisonePV 07/16/24 Jannette - B cerumen removed with subsequent 4 days of otalgia [id number] right sudden [id number] sjogren confirmed with lip bxmultiple abx allergies, but has tolerated doxy in past CHAPO SMITH MD [address] [place] [address],[place] [address], [place], [address], [place] - [facility] 08/26/2024 15:18:28 OBGyn Episode No OBEpisode recorded.
== END 2024-09-14 14:46 | disposition home or self-care (01) ==
LOC: HO.RHES 13:54
PROVIDERS: PCP Internal Medicine; Visit Provider Internal Medicine Rheumatology
DX: M35.00 Sjogren syndrome, unspecified (principal); R25.2 Cramp and spasm
CPT/HCPCS: 99214; G2211

== ENCOUNTER 2024-12-17 09:51 | Outpatient (AMB) | payer MEDICARE, SELFPAY ==
[2024-12-17 10:13] VITALS: BP 134/82; PULSE 70; RESP 16; O2SAT 99; BMI 23.3
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
--- OUTSIDE RECORDS SUMMARY | 2024-12-17 10:56 | XMS_ITS | Clinical Summary ---
Author Organization [facility] [address] [facility] Address [address] [place] [address] Phone Care Team Providers Care Furnace Firer Name Role Phone Bo Clayton MD Primary Care Provider [phone] Allergies Active Allergy Reactions Criticality Noted Date Comments Cefprozil Hives,Rash High 04/15/2013 Erythromycin Rash Low 04/15/2013 Esomeprazole Unknown 01/14/2022 Other Reaction(s): DARK URINE Dark urine Hydrocodone-Acetaminophen 02/09/2020 shortness of breath Lansoprazole Rash 04/15/2013 hives Milk 08/23/2019 Oxycodone Wheezing 02/09/2020 Medications amitriptyline (ELAVIL) 10 mg tablet Take 2 tablets (20 mg total) by mouth at bedtime. Active cevimeline (EVOXAC) 30 mg capsule Take 1 capsule (30 mg total) by mouth 2 (two) times a day. Active cycloSPORINE (RESTASIS) 0.05 % ophthalmic emulsion 1 drop 2 (two) times a day. Active triamcinolone (Nasacort) 55 mcg nasal inhaler Administer 2 sprays into each nostril 1 (one) time each day. Active clobetasoL (TEMOVATE) 0.05 % cream Apply topically 2 (two) times a day. Active mometasone (ELOCON) 0.1 % cream Apply topically 1 (one) time each day. Active estradioL (ESTRACE) 0.01 % (0.1 mg/gram) vaginal cream Insert 2 g into the vagina 1 (one) time each day. Active alendronate (FOSAMAX) 70 mg tablet Take 1 tablet (70 mg total) by mouth every 7 (seven) days. Take in the morning with a full glass of water, on an empty stomach, and do not take anything else by mouth or lie down for the next 30 min. Active calcium citrate-vitamin D 250 mg-2.5 mcg (100 unit) per tablet Take 1 tablet by mouth 2 (two) times a day. Active cholecalciferol (VITAMIN D-3) 25 mcg (1,000 unit) tablet Take 1 tablet (1,000 Units total) by mouth 1 (one) time each day. Active multivitamin tablet Take 1 tablet by mouth 1 (one) time each day. Active ibuprofen (ADVIL,MOTRIN) 200 mg tablet Take by mouth every 6 (six) hours if needed. Active acetaminophen (TYLENOL) 325 mg tablet Take 1 tablet (325 mg total) by mouth every 4 (four) hours if needed for mild pain. Active Active Problems Problem Noted Date Diagnosed Date Irritable bowel syndrome wit h both constipation and diarrhea 08/27/2024 Gastroesophageal reflux disease without esophagi tis 08/27/2024 Osteoporosis 08/27/2024 Sjogren's disease ([facility] V24) 08/27/2024 Encounters Date Type Department Care Team Description 12/14/2024 Telephone Gastroenterology - [address] [place] [address] Kim Roque MD from Last 3 Months Surgical History Surgery Date Site/Laterality Comments COLONOSCOPY 12/22/2021 - 01/21/2022 left sided tics, int rhoids ([address] Roque ESOPHAGOGASTRODUODENOSCOPY 12/22/2021 - 01/21/[address] Roque CHOLECYSTECTOMY Social History Tobacco Use Types Packs/Day Years Used Date Smoking Tobacco: Never Tobacco Cessation:Counseling Given: Not Answered Alcohol Use Standard Drinks/Week Comments Never 0 (1 standard drink = 0.6 oz pur e alcohol) Comments Unknown Sex and Gender Information Value Date Recorded Sex Assigned at Not on file Legal Sex Female 9:47 AM EST Gender Identity Not on file Sexual Orientation Not on file Obstetrics History Last Filed Vital Signs Vital Sign Reading Time Taken Comments Blood Pressure - - Pulse - - Temperature - - Respiratory Rate - - Oxygen Saturation - - Inhaled Oxygen Concentration - - Weight 64.4 kg (142 lb) 08/27/2024 1:46 PM EDT Height 165.1 cm (5' 5 ) 08/27/2024 1:46 PM EDT Body Mass Index 23.63 08/27/2024 1:46 PM EDT Plan of Treatment Health Maintenance Due Date Last Done Comments Breast Cancer Screening 1960 Cervical Cancer Screening: Pap Smear 12/20/1979 Pneumococcal Vaccine: 50+ Years (1 of 1 - PCV) 2008 Zoster Vaccines (1 of 2) 2008 Hepatitis C Screening 02/19/2022 Medicare Annual Wellness Visit 02/19/2022 Social Influencers of Health Screening 02/19/2022 Falls Risk Assessment 12/20/2023 Depression Screening 03/24/2024 COVID-19 Vaccine ( season) 2024 01/30/2024, 01/15/2023, 01/23/2022, Additional history exists Influenza Vaccine (#1) 2024 , 12/26/2022, 01/10/2022, Additional history exists Osteoporosis Screening (Bone Density Screening) 07/08/2026 07/08/2016 DTaP,Tdap,and Td Vaccines (2 - Td or Tdap) 08/03/2027 08/02/2017 Colorectal Cancer Screening: Colonoscopy 10/19/2034 10/19/2024 RSV Immunization Adult Patients Completed 04/02/2024 HIB Vaccines Aged Out No longer eligi ble based on patient's age to complete this topic HPV Vaccines Aged Out No longer eligi ble based on patient's age to complete this topic Hepatitis A Vaccines Aged Out No long er eligible based on patient's age to complete this topic Hepatitis B Vaccines Aged Out No long er eligible based on patient's age to complete this topic IPV Vaccines Aged Out No longer eligi ble based on patient's age to complete this topic MMR Vaccines Aged Out No longer eligi ble based on patient's age to complete this topic Meningococcal ACWY Vaccine Aged Out N o longer eligible based on patient's age to complete this topic Meningococcal B Vaccine Aged Out No l onger eligible based on patient's age to complete this topic RSV Immunization Patients Under 20 months Aged Out No longer eligible based on patient's age to complete this topic Varicella Vaccines Aged Out No longer eligible based on patient's age to complete this topic Procedures Procedure Name Priority Date/Time Associated Diagnosis Comments COLONOSCOPY Routine 10/19/2024 2:14 PM EDT from Last 3 Months Results * COLONOSCOPY (10/19/2024 2:14 PM EDT) Anatomical Region Laterality Modality Endoscopy us Historical Provider GI~PROCEDURE ORDERABLES F inal Result from Last 3 Months Insurance BLUE CROSS - [place] MEDICARE ADVANTAGE Care Teams Furnace Firer Relationship Specialty Start Date End Date Bo Clayton MD [address] [place] [address] PCP - General 08/07/22
--- OUTSIDE RECORDS SUMMARY | 2024-12-17 10:56 | XMS_ITS | Encounter Summary ---
Author Organization [facility] Address [address] [place] [address] Phone Care Team Providers Care Fitting Room Supervisor Name Role Phone Jasper Lucia DO Primary Care Provider Bo Clayton MD Primary Care Provider [phone] Encounter Details Date Type Department Care Team (Latest Contact Info) Description 09/01/2020 Transcribe Orders Virtual Department [address] [place] [address] Eh Duran MD [address] [place] [address], [address] [place] [address] [email or web address] TIA (transient ischemic attack) (Primary Dx) Social History Tobacco Use Types Packs/Day Years Used Date Smoking Tobacco: Never Smokeless Tobacco: Never Comments Unknown Sex and Gender Information Value Date Recorded Sex Assigned at Not on file Legal Sex Female 9:32 AM EST Gender Identity Not on file Sexual Orientation Not on file documented as of this encounter Plan of Treatment Not on file documented as of this encounter Results * US Carotid Duplex Complete (Bilateral) (10/10/2020 12:01 PM EDT) Anatomical Region Laterality Modality Heart, Thoracic Vasculature, Neck Ultrasound 10/10/2020 12:5 7 PM EDT Impressions 10/10/2020 1:01 PM EDT Mild plaque formation bilaterally but no evidence for carotid dissection or stenosis relative to distal ICA diameters. Narrative 10/10/2020 1:01 PM EDT COMPARISON:None CAROTID ULTRASOUND FINDINGS: RIGHT: Peak external carotid artery: 104 cm/sec Peak vertebral: 81 cm/sec and antegrade Peak common carotid artery: 63 cm/sec Peak internal carotid artery: 117 cm/sec Carotid artery morphology: Moderate soft plaque. No high-grade stenosis apparent. Peak systolic ratio is normal. LEFT: Peak external carotid artery: 124 cm/sec Peak vertebral: 78 cm/sec and antegrade Peak common carotid artery: 117 cm/sec Peak internal carotid artery: 122 cm/sec Carotid artery morphology: Mild soft plaque. No evidence of moderate or high- grade stenosis Peak systolic ratio is normal. Any stenosis measurement is relative to the distal ICA diameters. Procedure Note Stephan Escamilla MD - 10/10/2020 COMPARISON:None CAROTID ULTRASOUND FINDINGS: RIGHT: Peak external carotid artery: 104 cm/sec Peak vertebral: 81 cm/sec and antegrade Peak common carotid artery: 63 cm/sec Peak internal carotid artery: 117 cm/sec Carotid artery morphology: Moderate soft plaque. No high-grade stenosisapparent. Peak systolic ratio is normal. LEFT: Peak external carotid artery: 124 cm/sec Peak vertebral: 78 cm/sec and antegrade Peak common carotid artery: 117 cm/sec Peak internal carotid artery: 122 cm/sec Carotid artery morphology: Mild soft plaque. No evidence of moderate orhigh- grade stenosis Peak systolic ratio is normal. Any stenosis measurement is relative to the distal ICA diameters. IMPRESSION: Mild plaque formation bilaterally but no evidence for carotid dissectionor stenosis relative to distal ICA diameters. us hE Duran MD US NEUROVASCULAR Final Re sult documented in this encounter Visit Diagnoses Diagnosis TIA (transient ischemic attack)- Primary Unspecified transient cerebral ischemia TIA (transient ischemic attack) Unspecified transient cerebral ischemia documented in this encounter Care Teams Fitting Room Supervisor Relationship Specialty Start Date End Date Jasper Lucia DO [address] [facility] [place] [address] PCP - General Family Medicine 04/27/18 10/09/20 Bo Clayton MD [address] [place] [address] PCP - General Internal Medicine 10/10/20 documented as of this encounter Additional Source Comments The information contained in this document represents components of the legal health record. It is not the complete legal health record.[facility]
--- OUTSIDE RECORDS SUMMARY | 2024-12-17 10:56 | XMS_ITS | Data Portability ---
Author Organization [place] [facility], Allergy Address [address] [address] Care Team Providers Care Storekeeper Helper Name Role Phone DELMIS COLLIER Primary Care Provider Assessment Encounter Date Assessment Date Assessment LastModified by Organization Details LastModified Time 07/16/2024 07/16/2024 63-year-old female with history of right sided sudden hearing loss in 2017 presents for routine ear cleaning. Cerumen impaction removed bilaterally. Bilateral TMs are intact and scarred with aerated middle ear spaces. She will follow up with Dr. Smith as scheduled. [email or web address] Not available 07/16/2024 14:11:32 08/02/2024 08/02/2024 63yo [...] valacyclovi r 1 gram tablet 2024 025 [facility] #[id number], [address] [place], [address], 5 15:15:25 prednisone 20 mg tablet 2024 025 [facility] #[id number], [address] [place], [address], 5 14:52:23 Patient TargetsNo targets recorded. Patient [...] Name and Address Organization Details Recorded Time Sensorine ural hearing loss 81245333 Active 2016 Sensorine ural hearing loss, unilatera l, right ear, with unrestric lissett hearing on the contralat eral side; Note: Date Diagnosed : 07/26/2016 4:17 PM (H90.41) Not Available [facility] 4 02:57:55 Stomatiti s 52827784 Active 2016 Oral thrush; Note: Date Diagnosed : 11/07/2016 11:17 AM (B37.0) Not Available [facility] 4 02:57:54 Candidias is of mouth 55236604 Active 2016 Oral thrush; Note: Date Diagnosed : 11/07/2016 11:17 AM (B37.0) Not Available [facility] 4 02:57:54 Tinnitus of right ear 76655510423 08 Active 2016 Tinnitus, right ear; Note: Date Diagnosed : 12/30/2016 2:55 PM (H93.11) Not Available [facility] 4 02:57:53 Bleeding from nose 371752136 Active 2016 Epistaxis ; Note: Date Diagnosed : 12/30/2016 2:55 PM (R04.0) Not Available [facility] 4 02:57:54 Gastroeso phageal reflux disease without esophagit is 611455030 Active 2017 Gastro-es ophageal reflux disease without esophagit is; Note: Date Diagnosed : 06/13/2017 4:38 PM (K21.9) Not Available [facility] 4 02:57:52 Impacted cerumen of bilateral ears 49167981715 41866 Active 2017 Impacted cerumen, bilateral ; Note: Date Diagnosed : 12/26/2017 1:13 PM (H61.23) Not Available [facility] 4 02:57:53 Abnormal auditory perceptio n 69799771 Active 2018 Other abnormal auditory perceptio ns, unspecifi ed ear; Note: Date Diagnosed : 05/21/2018 12:08 PM (H93.299) Not Available [facility] 4 02:57:56 Acute serous otitis media of right ear 08195057887 21161 Active 2018 Acute serous otitis media, right ear; Note: Date Diagnosed : 07/02/2018 12:44 PM (H65.01) Not Available [facility] 4 02:57:54 Nasal congestio n 56834978 Active 2018 Nasal congestio n; Note: Date Diagnosed : 07/02/2018 12:44 PM (R09.81) Not Available [facility] 4 02:57:55 Acute sinusitis 96445722 Active 2018 Other acute sinusitis ; Note: Date Diagnosed : 07/02/2018 12:44 PM (J01.80) Not Available [facility] 4 02:57:53 Otalgia of right ear 5364496672 Active 2018 Otalgia, right ear; Note: Date Diagnosed : 08/24/2018 2:42 PM (H92.01) Not Available [facility] 4 02:57:55 Disorder of right Eustachia n tube 68010449017 49962 Active 2018 Other specified disorders of Eustachia n tube, right ear; Note: Date Diagnosed : 08/24/2018 2:42 PM (H69.81) Not Available [facility] 4 02:57:54 Headache 57005814 Active 2018 Facial pain NOS; Note: Date Diagnosed : 09/08/2018 3:59 PM (R51) Not Available [facility] 4 02:57:55 Acute maxillary sinusitis 40263842 Active 2019 Acute maxillary sinusitis , unspecifi ed; Note: Date Diagnosed : 07/23/2019 2:32 PM (J01.00) Not Available [facility] 4 02:57:56 Allergic rhinitis 97563059 Active 2019 Other allergic rhinitis; Note: Date Diagnosed : 07/23/2019 2:39 PM (J30.89) Not Available [facility] 4 02:57:56 Chronic sialadeni tis 909879985 Active 2022 Chronic sialoaden itis; Note: Date Diagnosed : 05/01/2022 10:34 AM (K11.23) Not Available [facility] 4 02:57:55 COVID-19 450129368 Active 2022 COVID-19; Note: Date Diagnosed : 05/01/2022 10:34 AM (U07.1) Not Available [facility] 4 02:57:56 Sensorine ural hearing loss of bilateral ears 986953106 Active 2024 YULI GARLAND, [facility] 100 [facility] 100, [facility] ellie, [place], [address] , [facility] 5 13:25:20 Hypertrop hy of nasal turbinate s 14150624 Active 2024 BRITTNEY BARNETT PA-C [address], [place], [place], [address] , [facility] 5 14:19:05 Moderate persisten t asthma 589918736 Active 2024 BRITTNEY BARNETT PA-C [address], [place], [address] , [facility] 5 14:19:05 Chronic sinusitis 85953544 Active 2024 BRITTNEY BARNETT PA-C [address], [place], [address] , [facility] 5 14:19:05 Polyp of nasal cavity 848255815 Active 2024 BRITTNEY BARNETT PA-C [address], [place], [place], [address] , [facility] 5 14:19:05 Deviated nasal septum 711112648 Active 2024 BRITTNEY BARNETT PA-C [address], [place], [place], [address] , [facility] 5 14:19:05 Polypoid sinus degenerat ion 66579448 Active 2024 BRITTNEY BARNETT PA-C [address], [place], [address] , [facility] 5 14:19:05 Seasonal allergic rhinitis 875284234 Active 2024 BRITTNEY BARNETT PA-C [address], [place], [address] , [facility] 5 14:19:05 Non-aller gic rhinitis 63875066213 1 Active 2024 BRITTNEY BARNETT PA-C [address], [place], [address] , [facility] 14:19:05 Primary Sj gren's syndrome 681212585 Active 2024 CHAPO SMITH MD 100 [facility],[place] [address], [place], [address] , [facility] 14:50:36 Bilateral tinnitus 38013754486 02 Active 2024 CHAPO SMITH MD 100 [facility],[place] [address], [place], [address] , [facility] 15:12:07 Herpes zoster 6366993 Active 2024 CHAPO SMITH MD 100 [facility],[place] [address], [place], [address] , [facility] 15:14:31 Problem Notes None recorded. Procedures Surgical History Date Name Laterality Status Provider Name and Address Organization Details Recorded Time Comp Audio 70320 completed LESTER HUERTA [address] [facility],[place] [address], [place], [address], [facility] 08/02/2024 13:25:10 Cerumen removal without microscope bilat completed JANNETTE HUTCHINS PA-C [address] [facility],[place] [address], [place], [address], [facility] 07/16/2024 14:09:43 Imaging Results None recorded. Procedure Notes None recorded. Medical Equipment None Reported. Allergies Allergen ID Allergen Name Allergen Category Reaction Reaction Severity Criticality Documentation Date Start Date Code Code System Note Provider Name and Address Organization Details Recorded Time 240469 cefprozil medicatio n other Not available Not available 08/05/202365265 RxNorm React ion: unkno wn, unspe cifie d;; Not Available [facility] 01:13:58 874361 lansopraz ole medicatio n other Not available Not available 08/05/2023 77207 RxNorm React ion: unkno wn, unspe cifie d;; Not Available [facility] 4 01:14:00 353232 oxycodone medicatio n Not available Not available Not available 08/02/2024 7804 RxNorm RAYA COMI null, [place] - [facility] 5 13:41:18 758365 Prevacid medicatio n Not available Not available Not available 08/02/2024 26879 RxNorm RAYA COMI null, [place] [facility] 5 13:41:30 738279 erythromy yajaira medicatio n Not available Not available Not available 08/02/2024 4053 RxNorm RAYA COMI null, [place] [facility] 5 13:41:39 Medications Name Sig Start Date Stop Date Status Note LastModified by Organization Details LastModified Time methocarb poly 500 mg tablet 08/02 completed Medicati on ID: [id number] D uration Value: 30 Brand Name: methocar bamol Se nd Method: E-Prescr ibed Sub s Allowed: subs OK Speci al Instruct ion: TAKE 1 TABLET BY MOUTH TWICE A DAY OR 3 TIMES A DAY Medi cationGe nericNam e: methocar bamol Not Available Not Available Not Available nystatin 100,000 unit/mL oral suspensio n 2016 active Medicati on ID: [id number] P rescribe d By Name: KOLTON Teague nd Name: nystatin Send Method: E-Prescr ibed Sub s Allowed: subs OK Speci al Instruct ion: 5 ml swish and spit four times daily x 2 weeks Me dication GenericN bhupinder: nystatin Not Available Not Available Not Available prednison e 10 mg tablet 08/02 completed Medicati on ID: 145258 D uration Value: 14 Prescri bed By [...] mg tablet 02/26 completed Medicati on ID: [id number] P rescribe d By Name: Chapo Smith [...] by mouth 08/02 completed Medicati on ID: [id number] B rand Name: Medrol (Mitchel) Se nd Method: E-Prescr ibed Sub s Allowed: subs OK Speci al Instruct ion: take as [facility] ed [facility] Medrol (Mitchel) Not Available Not [...] a day 08/02 completed Medicati on ID: [id number] D uration Value: 10 Brand Name: Diflucan [...] a day 08/02 completed Medicati on ID: [id number] D uration Value: 10 Prescri bed By Name: Chapo Smith M.D. Bra nd Name: doxycycl ine monohydr ate Send Method: E-Prescr ibed Sub s Allowed: subs OK Medic ationGen ericName : doxycycl ine monohydr ate Not Available Not Available Not Available nitrofura ntoin macrocrys alfonzo 100 mg capsule 2018 active Medicati on ID: [id number] D uration Value: 3 Brand Name: nitrofur [...] elayed release 08/02 completed Medicati on ID: 783914 D uration Value: 30 Brand Name: omeprazo [...] unit) capsule 2016 active Medicati on ID: [id number] B rand Name: Vitamin D3 Send Method: [...] layed release 08/02 completed Medicati on ID: [id number] B rand Name: doxycycl ine hyclate Send [...] Updated DateTime 07/16/2024 165.1 cm 23.3 kg/m2 65819.93 g RAYA [facility] 07/16/2024 13:12:20 Date Recorded Body height Body mass index (BMI) Body weight Provider Name and Address Organization Details Last Updated DateTime 08/02/2024 165.1 cm 23.3 kg/m2 02333.93 g RAYA COMI [place] - [facility] 08/02/2024 13:41:01 Date Recorded Body height Provider Name an d Address Organization Details Last Updated DateTime 08/26/2024 165.1 cm RAYA VELÁZQUEZ [place] [facility] [place] 08/26/2024 14:50:52 Social History None recorded. Functional Status None recorded. Mental Status None recorded. Family History Nothing Reported. Medical History No medical history recorded. Gynecological HistoryNo gynecological history recorded. Obstetrics History GPAL:G 0 P 0 0 0 0 Past Encounters Encounter ID Performer Location Encounter Start Date Encounter Closed Date Diagnosis/Indication Diagnosis SNOMED-CT Code Diagnosis ICD10 Code Diagnosis IMO Codes Diagnosis Note [id number] JANNETTE HUTCHINS PA-C [facility] [address] [address] 07/16/2024 13:02:35 07/16/2024 13:27:35 Impacted cerumen of bilateral ears [id number] 214886 H61.23 [id number] BRITTNEY BARNETT PA-C [facility] [address] [address] 08/02/2024 13:01:30 08/02/2024 14:22:03 Sensorineural hearing loss of bilateral ears 382442034 H90.3 [id number] Audiologic al evaluation results: Right ear: Normal sloping to mild sensorineu ral hearing loss with excellent word recognitio n. Asymmetry present from 250-2kHz Left ear: Normal sloping to mild sensorineu ral hearing loss with excellent word recognitio n. Tympanomet ry: Right Ear:Type A Left Ear:Type A Abnormal a uditory perception 90363824 H93.299 [id number] CHAPO SMITH MD [facility] [address] [address] 08/26/2024 14:22:01 08/26/2024 15:16:41 Bilateral tinnitus 0858189022 102 H93.13 601593 Herpes zoster 4993959 B0 2.9 26864718 Primary Sj gren's syndrome 369206013 M35.00 625044 Health Concerns Section Related Observation LastModified by Organization Detai ls LastModified Time None Recorded Concern Status LastModified by Organization Details LastModified Time None Recorded Advance Directives Directive None Recorded Payers Insurance Date Sequence Insurance Name Policy Number Policy Nichole Covered Member ID Nichole Member ID Guarantor Name 08/26/2024 1 [facility]: MEDICARE PPO BLUE (MEDICARE REPLACEMENT PPO) [id number] Bronwyn Samuels [id number] Bronwyn Samuels Notes Date Note Type Note Provider Name and Address Organization Details Recorded Time 07/16/2024 text/html ROS as noted in the HPI 63-year-old female with history of right sided sudden hearing loss in 2017 presents for routine ear cleaning. Had an ear infection in April. History of Sjogren's. 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 Takes Afrin and uses ear planes prior to flights. EDGAR EMERSON MD 100 [facility],[address], [address], [place] - [facility] 07/16/2024 14:34:17 08/02/2024 text/html ROS as noted in the HPI 63yo female with history of right-sided sudden [...] bed in the morning. ESE WISE MD [address] [place] [address],[place] [address], [place], [address], [facility] 08/04/2024 06:42:57 08/26/2024 text/html ROS as noted in the [facility] sinuswinter 2024 viral URI and ear infectionresponded well to prednisone and was able to travel to [facility] to get some right side block sensation.gets [...] removed with subsequent 4 days of otalgia [id number] right sudden [id number] sjogren confirmed with lip bxmultiple abx allergies, but has tolerated doxy in past CHAPO SMITH MD [address] [place] [address],[place] [address], [place], [address], [facility] 08/26/2024 15:18:28 OBGyn Episode No OBEpisode recorded.
--- OUTSIDE RECORDS SUMMARY | 2024-12-17 10:57 | XMS_ITS | Clinical Summary ---
Author Organization [facility] Address [address] [place] [address] Phone Care Team Providers Care [employer] Operator Name Role Phone Bo Clayton MD Primary Care Provider [phone] Allergies Active Allergy Reactions Criticality Noted Date Comments Moxifloxacin Diarrhea 02/09/2020 Cefprozil 02/09/2020 Bgtctqllp-Jxdoac-Rtjjxqur-Scop Diarrhea,Dizziness 02/09/2020 Erythromycin 02/09/2020 Hydrocodone-Acetaminophen 02/09/2020 Oxycodone 02/09/2020 Lansoprazole 02/09/2020 Medications cyclobenzaprine (FLEXERIL) 5 MG tablet Take 5 mg by mouth daily as needed. Active ibuprofen (ADVIL,MOTRIN) 200 MG tablet Take 400 mg by mouth 2 (two) times a day as needed. Active omeprazole (PRILOSEC) 20 mg TbEC Take 20 mg by mouth daily before breakfast. Active albuterol 90 mcg/actuation inhaler Inhale 2 puffs into the lungs every 4 (four) hours as needed. Active acetaminophen (TYLENOL) 500 MG tablet Take 1,000 mg by mouth daily as needed. Active cholecalciferol (VITAMIN D3) 2,000 unit capsule Take 2,000 Units by mouth daily. Active pilocarpine (SALAGEN) 5 MG tablet Take 5 mg by mouth 2 (two) times a day. Active ascorbic acid, vitamin C, (VITAMIN C) 250 mg Chew Take 250 mg by mouth daily. Active therapeutic multivitamin tablet Take 1 tablet by mouth daily. Active triamcinolone (NASACORT AQ) 55 mcg/actuation nasal inhaler 2 sprays by Nasal route daily. Active Active Problems Problem Noted Date Diagnosed Date Fibromyalgia affecting multiple sites 05/12/2020 Assessment & Plan (05/12/2020 12:40 PM EST): Based on the patient's history, physical, and review of the available laboratory I believe that fibromyalgia is quite possible diagnosis. There is no evidence of an inflammatory arthritis or other connective tissue disease in this case. We discussed the diagnosis of fibromyalgia, its natural history, and treatment. Specifically, we discussed that treatment requires many interventions and recognition that we are often unable to get patients completely pain free. Management of fibromyalgia requires patient engagement to address any underlying depression, anxiety, or sleep disorder. Further, patients are encouraged to engage in regular physical activity. Some studies have suggested that Mario Chi is effective. Other physical activity may including water-based aerobics, etc. In terms of pharmacotherapy, there are many options, including tricyclic antidepressants, duloxetine, gabapentin or pregabalin, and cyclobenzaprine as well as other similar medications to those listed. In this case, the patient might try low-dose gabapentin. I am sending her pamphlets of possible side effects to read about and discuss it with me if interested in trying it. I briefly reviewed most frequent side effects including but not limited to allergic reactions, GI upset, grogginess, suicidal thoughts, mood swings etc. I reviewed with her that it may take several weeks or couple of months for that medication to build up the therapeutic effect. I've encouraged the patient to follow up with the primary care physician for further management and the initiation of medications. At this time, they require no further rheumatology follow up but I am happy to see the patient again if anything changes clinically. I also send her pamphlet on fibromyalgia that includes useful websites and resources for patients with fibromyalgia including book written by Dr Tres Huertas [employer] [facility] addressing management of fibromyalgia related pain, fatigue and stiffness using mindfulness approach. Arthralgia of multiple sites 02/09/2020 Assessment & Plan (05/12/2020 12:34 PM EST): Joint protection, energy conservation. Gentle, regular exercise routine. Avoid falls, injuries, overuse. Keep body weight in ideal range for her height. She may benefit from topical cream such as Arnica, Biofreeze, Aspercreme versus medicated patches such as salonpas, icy hot patch 2-3 times daily and if necessary at bedtime x 3 weeks. Call if questions or problems. May need to consider local steroid injection if not better or worse. Assessment & Plan (02/12/2020 3:27 PM EST): Joint protection, energy conservation. Gentle, regular exercise routine. Avoid falls, injuries, overuse. Keep body weight in ideal range for her height. She may benefit from topical cream such as Arnica, Biofreeze, Aspercreme versus medicated patches such as salonpas, icy hot patch 2-3 times daily and if necessary at bedtime x 3 weeks. Call if questions or problems. May need to consider local steroid injection if not better or worse. Post-traumatic headache 02/09/2020 Assessment & Plan (05/12/2020 12:35 PM EST): Proper neck support during the day and for nighttime. Proper posture. Regular relaxation/meditation and gentle stretching as educated by PT. Consider gentle chiropractic treatments along with massage and gentle traction. Assessment & Plan (02/12/2020 3:27 PM EST): Proper neck support during the day and for nighttime. Proper posture. Regular relaxation/meditation and gentle stretching as educated by PT. Consider gentle chiropractic treatments along with massage and gentle traction. Chronic fatigue 02/09/2020 Assessment & Plan (02/12/2020 3:28 PM EST): Balance rest and activity. Sleep hygiene. Proper hydration and well-balanced nutritionally diet. Keep engaged in regular hobbies/favorite activities. Avoid falls, injuries, overuse and sick contacts. Adhere to age-appropriate screenings and preventive strategies. 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 Keep a diary of food intake to monitor for specific patterns. Assessment & Plan (02/12/2020 3:24 PM EST): Watchful diet and proper hydration. Keep a diary of food intake to monitor for specific patterns. Irritable bowel syndrome wit h both constipation and diarrhea 02/09/2020 Assessment & Plan (05/12/2020 12:34 PM EST): Adjust diet according to food tolerance. Follow closely with heel dipper/dietitian & if needed with oil filters inspector Assessment & Plan (02/12/2020 3:25 PM EST): Adjust diet according to food tolerance. Follow closely with heel dipper/dietitian & if needed with oil filters inspector Environmental and seasonal allergies 02/09/2020 Assessment & Plan (05/12/2020 12:35 PM EST): Avoid known allergens and continue close follow-up with performance management consultant as scheduled. Assessment & Plan (02/12/2020 3:29 PM EST): Avoid known allergens and continue close follow-up with performance management consultant as scheduled. Sudden-onset sensorineural hearing loss 02/09/20 20 Assessment & Plan (02/12/2020 3:23 PM EST): Continue close follow-up with ENT as scheduled- I have requested records for review. 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 Remember to take it always with food. Favor topical over oral preparations. Assessment & Plan (02/12/2020 3:29 PM EST): Take the lowest dose, with least frequency, for shortest time. Remember to take it always with food. Favor topical over oral preparations. Gastroesophageal reflux dise ase with esophagitis without hemorrhage 02/09/2020 Assessment & Plan (05/12/2020 12:34 PM EST): Avoid late, large, spicy meals. Keep headboard elevated at 45 angle for nighttime. Assessment & Plan (02/12/2020 3:25 PM EST): Avoid late, large, spicy meals. Keep headboard elevated at 45 angle for nighttime. Keratoconjunctivitis sicca o f both eyes not due to Sjogren's syndrome 02/09/2020 Assessment & Plan (05/12/2020 12:33 PM EST): Keep well-hydrated. Avoid spicy and acidic foods. Diligent mouth hygiene. Regular dental checkups. Assessment & Plan (02/12/2020 3:23 PM EST): Keep well-hydrated. Avoid spicy and acidic foods. Diligent mouth hygiene. Regular dental checkups. Calcium nephrolithiasis 02/09/2020 Assessment & Plan (02/12/2020 3:26 PM EST): Keep well-hydrated: 6-8 glasses (8 ounces each) of fluids daily. Social History Tobacco Use Types Packs/Day Years Used Date Smoking Tobacco: Never Smokeless Tobacco: Never Education Answer Date Recorded Are you interested in more education? Not on jasvir e 07/19/2022 Are you concerned about learning? Not on file 07/19/2022 No 07/19/2022 No 07/19/2022 Digital Access Answer Date Recorded No 08/20/2022 No 08/20/2022 Reliable internet access at home? Not on file 08/20/2022 Device with a working camera? Not on file Comments Unknown Sex and Gender Information Value Date Recorded Sex Assigned at Not on file Legal Sex Female 9:32 AM EST Gender Identity Not on file Sexual Orientation Not on file Last Filed Vital Signs Vital Sign Reading Time Taken Comments Blood Pressure 118/60 02/09/2020 1:05 PM EST Pulse - - Temperature - - Respiratory Rate - - Oxygen Saturation - - Inhaled Oxygen Concentration - - Weight 60.8 kg (134 lb) 05/12/2020 10:09 AM EST per patient Height 165.1 cm (5' 5 ) 05/12/2020 10:09 AM EST Body Mass Index 22.3 05/12/2020 10:09 AM EST Plan of Treatment Health Maintenance Due Date Last Done Comments LIPID PANEL 1958 DEPRESSION SCREENING 1970 HEPATITIS C SCREENING 1976 HIV ONE-TIME SCREENING (18-65 YEARS) 1976 MAMMOGRAM 1998 COLOGUARD 12/20/2003 COLONOSCOPY 12/20/2003 COLORECTAL CANCER SCREENING 12/20/2003 FIT TEST 12/20/2003 FOBT 12/20/2003 SIGMOIDOSCOPY 12/20/2003 VIRTUAL COLONOSCOPY 12/20/2003 PNEUMOCOCCAL VACCINES (50+ years) (1 of 1 - PCV) 2008 ZOSTER VACCINES (1 of 2) 2008 OSTEOPOROSIS SCREENING INITIAL (ONE-TIME) 12/20/2023 INFLUENZA VACCINE (#1) 2024 , 12/22/2018, 11/26/2017, Additional history exists COVID-19 VACCINE (2 - 2024- season) 2024 06/16/2020 Adult Td,Tdap Booster 08/03/2027 08/02/2017 , 02/21/2011, 06/05/2008, Additional history exists RSV VACCINE (1 - 1-dose 75+ series) 2033 SMOKING STATUS SCREENING (Once After 26 Yrs) Completed 05/12/2020 HEPATITIS A VACCINES Aged Out No long er eligible based on patient's age to complete this topic HIB VACCINES Aged Out No longer eligi ble based on patient's age to complete this topic MENINGOCOCCAL VACCINES (ACWY) Aged Out No longer eligible based on patient's age to complete this topic MENINGOCOCCAL VACCINES (B) Aged Out N o longer eligible based on patient's age to complete this topic Medical Devices Not on file Insurance [facility] [employer] [place] [address] [address] [employer] [facility] [id number] [facility] [employer] [place] [address] [place] [address] [employer] [facility] [employer] [facility] [employer] PPO [facility] [employer] Care Teams [employer] Operator Relationship Specialty Start Date End Date Bo Clayton MD [address] [place] [address] [address] [place] [address] PCP - General Internal Medicine 10/10/20 Additional Source Comments The information contained in this document represents components of the legal health record. It is not the complete legal health record.[facility]
== END 2024-12-17 10:57 | disposition home or self-care (01) ==
LOC: HO.HSM 09:51
PROVIDERS: PCP Internal Medicine; Visit Provider Nurse Practitioner
DX: M54.81 Occipital neuralgia (principal); M79.18 Myalgia, other site; M25.519 Pain in unspecified shoulder
CPT/HCPCS: 99204

== ENCOUNTER → 2024-12-17 09:51 | Outpatient (BNVA) | payer MEDICARE, SELFPAY | PROVIDERS: PCP Internal Medicine; Visit Provider Nurse Practitioner | DX: M54.81 Occipital neuralgia (principal); M79.18 Myalgia, other site; M25.519 Pain in unspecified shoulder | CPT/HCPCS: 99202 ==

== ENCOUNTER 2025-02-07 13:06 | Outpatient (AMB) | payer MEDICARE, SELFPAY ==
--- NOTE | 2025-02-07 13:06 | MHC.OFFVIS ---
Vital Signs 02/07/25 13:12 Height 5 ft 4 in Weight 130 lb BMI 22.3 BP 128/84 Blood Pressure Location Lt brachial Position Sitting Respiration 16 Pulse 101 H Pulse Source Pulse Oximeter Pulse Oximetry (%) 97 Oxygen Delivery Method Room Air Intake Visit Reasons: 3 months follow up Resourcing Advisor Required: No Allergies oxycodone Allergy (Severe, Verified 02/07/25 13:12) short of breath esomeprazole Adverse Reaction (Mild, Verified 02/07/25 13:12) darkened urine cefzil Allergy (Mild, Uncoded 02/07/25 13:12) rash arithrimycin Allergy (Unknown, Uncoded 02/07/25 13:12) Rash HPI Comments Details: Bronwyn is a 64-year-old female patient with a medical history of adjustment disorder, anxiety, insomnia, and urinary frequency who is presenting today for a follow-up visit regarding ongoing headaches and neck pain. To review: She has historically had predominantly right-sided headaches associated with dizziness, light sensitivity, and nausea. She was using cyclobenzaprine as needed predominantly at bedtime for as-needed therapy. We did discuss switching over to a tricyclic antidepressant and doing physical therapy as an adjunctive treatment option. We did eventually switched to amitriptyline 10 mg at bedtime and she was taken off the cyclobenzaprine. At a visit in June of 2024, she did not report any profound benefit with the use of the amitriptyline however she was tolerating it well. She had some mixed results with a trial of physical therapy forgot most of her benefit from massage components. We did increase her amitriptyline from 10 mg to 20 mg before further management as she was tolerating the medication well. I also advised for heat therapy at home and advised that she should call the office if she would like to go back to physical therapy further treatments. She did call the office later in June and another order was sent for further physical therapy. At the time of our last visit in November of 2024 she noted that she had stopped her amitriptyline. It was causing symptoms of restless leg. Her restless leg had improved since coming off of the amitriptyline. She had resumed her cyclobenzaprine but unfortunately after stopping the amitriptyline and starting the cyclobenzaprine again her restless legs continued. She was then off of both the amitriptyline and cyclobenzaprine and was having worsening of her headaches. Again, pain is to the occipital area primarily. She had some sensations of burning pain to the scalp associated with some pressure sensations she also had noted some crepitus when turning her head from side to side. She had an increased amount of tinnitus. At the time of our last visit, we discussed imaging. She was hopeful to have both her brain and C-spine imaged. We did proceed with CT imaging of both. She had a normal/nonacute brain CT and her CT of the cervical spine did show some mild degenerative changes but no major abnormalities. I had recommended gabapentin 100 mg up to 300 mg at bedtime to help improve her headaches, sleep, and restless leg. She never did start it because she was having some GI issues that have since resolved though she wanted to clarify some questions before proceeding with the gabapentin. She has seen improvement in her dizziness with vestibular physical therapy in his hopeful to start physical therapy specifically to target her head and neck pain. Prior therapies tried: Cyclobenzaprine-some mild benefit but now triggering restless legs symptoms Amitriptyline-no profound benefit and causes significant restless leg symptoms Occipital nerve blocks-caused significant worsening of her pain Physical therapy-no clear benefit and possible worsening of pain with sessions Past workup: CT brain and c-spine 01/27/2025 IMPRESSION: No findings of an acute intracranial process. Mild spondylotic changes and facet arthrosis. No findings of cervical fracture or listhesis. No significant central stenosis is demonstrated. Mild RIGHT C4-C5 and C5-C6 foraminal narrowing. [facility] Medical History (Updated 01/13/25 @ 05:36 by Juanita Campos CNP) Chronic paronychia of finger Lichen sclerosus H/O Sjogren's disease Surgical History H/O dilation and curettage Hx of cholecystectomy [place] teeth removed Family History Mother Osteoarthritis Osteoporosis Hypertension Glaucoma Father Hypertension Osteoporosis Heart disease Brother Hypertension Multiple myeloma Review of Systems Const All systems reviewed & are unremarkable except as noted in HPI and below Physical Exam Vital Signs: Last Vital Signs Pulse 101 H 02/07/25 13:12 Resp 16 02/07/25 13:12 BP 128/84 02/07/25 13:12 Pulse Ox 97 02/07/25 13:12 Oxygen Delivery Method Room Air 02/07/25 13:12 BMI result Body Mass Index 22.3 Const General: cooperative, healthy appearing, comfortable and no acute distress Nutritional Appearance: well nourished Orientation/consciousness: patient oriented x3 Limitations: no limitations HEENT Head: Yes normal to inspection and Yes normocephalic Eyes General: appearance normal, both eyes and all related structures Visual Carey: normal visual carey by confrontation Alignment and Position: alignment normal Periorbital: periorbital findings normal Eyelids: Yes eyelids normal Conjunctivae: conjunctivae normal Sclerae: sclerae normal Back/Spine/Pelvis Other: Bilateral mild ELISA tenderness and bilateral trapezius tightening with trigger points. Neuro General: patient oriented x3 and deep tendon reflexes 2+ bilaterally Cranial nerves: Yes CN's II-XII intact bilaterally and Yes Facial sensation intact/muscles of mastication intact Cognition (Neuro): normal cognition Gait exam (Neuro): Normal gait present Motor exam (neuro): 5/5 motor strength present throughout and no tremor noted Sensory Exam: double simultaneous stimulation for sensation normal Romberg Test: Negative Pupils: Normal pupillary reactivity/response: bilateral Psych Appearance: grossly normal Mental Status: mental status grossly normal Speech and movement: Normal speech and movement present and Clear speech present Affect: normal affect Attitude: cooperative Thought process: Normal thought process present Thought content: Normal thought content present Insight: Good insight present (Psych) Judgement: Good judgement present (Psych) Assessment & Plan Assessment & Plan (1) Occipital neuralgia: Code(s): M54.81 - Occipital neuralgia Category: Medical (2) Muscle pain, myofascial: Code(s): M79.18 - Myalgia, other site Category: Medical (3) Trigger point of shoulder region: Code(s): M25.519 - Pain in unspecified shoulder Category: Medical (4) Neck pain: Code(s): M54.2 - Cervicalgia Category: Medical Plan Bronwyn is a 64-year-old female patient with a medical history of adjustment disorder, anxiety, insomnia, and urinary frequency who is presenting today for a follow-up visit regarding ongoing headaches and neck pain. We will continue with plan to start gabapentin for her headaches, sleep, and restless leg that was recommended at last visit though she held off due to some GI issues. I will also recommend physical therapy for myofascial release and potential consideration of dry needling. She has been working with a provider at [facility] facility and would like to continue this. We could still consider Nurtec trial although headaches are somewhat more characteristic of tension-type. Nurtec could however still have a positive effect and offers a low side effect profile. -start gabapentin 100 mg at bedtime up to 300 mg at bedtime -referral sent to [facility] (per patient request) for PT targeting her head and neck pain (request specifically to include dry needling) -could still consider a trial of Nurtec if the gabapentin does not work Orders: Orders PT Evaluation and Treatment Today M25.519 - Pain in unspecified shoulder, M54.2 - Cervicalgia, M54.81 - Occipital neuralgia, M79.18 - Myalgia, other site Coding Level of Care Code Est Pt Level 4 (35065) Diagnoses Occipital neuralgia M54.81 Muscle pain, myofascial M79.18 Trigger point of shoulder region M25.519 Neck pain M54.2
[2025-02-07 13:12] VITALS: BP 128/84; PULSE 101; RESP 16; O2SAT 97; BMI 22.3
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
--- OUTSIDE RECORDS SUMMARY | 2025-02-08 01:46 | XMS_ITS | Data Portability ---
Author Organization [facility], Telehealth Address [address] [place] [address] Assessment No assessment recorded. Plan of Treatment Reminders Order Date Submit Date Provider Last Modified By Organization Details Last Modified Time Details Appointments None recorded. Lab None recorded. Referral None recorded. Procedures None recorded. Surgeries None recorded. Imaging None recorded. Medication Orders amoxicilli n 875 mg tablet 2018 019 [id number], [address] [place], [address], 9 13:45:51 prednisone 20 mg tablet 2018 019 [id number], [address] [place], [address], 9 15:55:48 Patient TargetsNo targets recorded. Patient InstructionsNo instructions recorded. Reason for Referral None Reported. Problems Name Problem SNOMED Code Status Onset Date Resolution Date Notes Provider Name and Address Organization Details Recorded Time Disorder of gallbladder 59199258 Active 019 Ayana Wadecam dickerson [facility] 9 13:17:56 Problem Notes None recorded. Medical Equipment None Reported. Allergies Allergen ID Allergen Name Allergen Category Reaction Reaction Severity Criticality Documentation Date Start Date Code Code System Note Provider Name and Address Organization Details Recorded Time 665 Cefzil medicatio n hives severe Not available 08/10/2018 93259 1 RxNorm Ayana dickerson [facility] 9 13:15:43 666 acetamino phen / hydrocodo ne medicatio n other severe Not available 08/10/2018 43826 2 RxNorm [facility] 9 13:16:13 667 Prevacid medicatio n hives severe Not available 08/10/2018 32000 RxNorm [facility] 9 13:16:39 Medications Name Sig Start Date Stop Date [...] blood by Pulse oximetry Heart rate Systolic And Diastolic Provider Name and Address Organization Details Last Updated DateTime 9 167.64 cm 21.3 kg/m2 89341.1 9 g 98.9 [degF] 93 % 93 % 87 /min 118/80 mm[Hg] [facility] 9 13:22:01 Social History Question Answer Notes LastModified by Organizat ion Details LastModified Time Tobacco Smoking Status Never Smoker [facility] 08/10/2018 13:18:57 What Was The Date Of Your Most Recent Tobacco Screening? 08/10/2018 Information n ot available 10/15/2018 Sex: Unknown Functional Status Question Answer Note LastModified by Organization D etails LastModified Time What is your level of alcohol consumption? None [email or web address] Information not available 08/10/2018 Mental Status None recorded. Family History Relationship Description Onset Age of this Age Resolved Age Notes LastModified by Organization Details LastModified Time Unspecified Relation Heart disease [email or web address] Not available 08/10 13:19:16 Medical History No medical history recorded. Gynecological HistoryNo gynecological history recorded. Obstetrics History GPAL:G 0 P 0 0 0 0 Past Encounters Encounter ID Performer Location Encounter Start Date Encounter Closed Date Diagnosis/Indication Diagnosis SNOMED-CT Code Diagnosis ICD10 Code Diagnosis IMO Codes Diagnosis Note [id number] Poncho Bryant PA-C [facility] [address] [place] [address] 08/10/2018 12:54:08 08/10/2018 13:48:45 Acute right otitis media 096448394 H66.91 patient reports a lot of GI [...] Nichole Member ID Guarantor Name 08/10/2018 1 NARENDRA [id number] Bronwyn Samuels [id number] Bronwyn Clinton Mazinronald Notes Date Note Type Note Provider Name and Address Organization Details Recorded Time 08/10/2018 text/html EaracheReported by PatientHPIFor location, patient reportsright. For quality, patient reportsachingandthrob kenan. History of recurrent ear infections and serous [...] runny nose, cough. Poncho Bryant PA-C [address] [facility] [address], [place], [address], [facility] 08/11/2018 13:42:33 OBGyn Episode No OBEpisode recorded.
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
== END 2025-02-07 13:56 | disposition home or self-care (01) ==
LOC: HO.HSM 13:07
PROVIDERS: PCP Internal Medicine; Visit Provider Nurse Practitioner
DX: M54.81 Occipital neuralgia (principal); M79.18 Myalgia, other site; M25.519 Pain in unspecified shoulder; M54.2 Cervicalgia
CPT/HCPCS: 99214

== ENCOUNTER → 2025-02-07 13:06 | Outpatient (BNVA) | payer MEDICARE, SELFPAY | PROVIDERS: PCP Internal Medicine; Visit Provider Nurse Practitioner | DX: M54.81 Occipital neuralgia (principal); M79.18 Myalgia, other site; M54.2 Cervicalgia; G25.81 Restless legs syndrome | CPT/HCPCS: 99212 ==

== ENCOUNTER 2025-03-08 10:17 | Outpatient (REF) | payer MEDICARE, SELFPAY ==
[2025-03-08 14:40] LABS: MANUAL DIFF FLAG NO
[2025-03-08 14:48] LABS: Hematocrit 42.3 % (37.0-47.0); Hemoglobin 13.9 g/dl (12.0-16.0); Imm Gran Abs Auto 0.07 X10*3/uL (0.00-0.03); Imm Gran Pct Auto 1.0 % (0.0-0.4); Lymphocytes Absolute Auto 1.7 X10*3/uL (1.2-4.9); Mean Corpuscular HGB Conc 32.9 g/dl (31.0-35.0); Mean Corpuscular Hemoglobin 29.6 pg (27.0-33.0); Mean Corpuscular Volume 90.2 fL (80.0-98.0); NRBC Abs Auto 0.000 X10*3/uL (0.0-0.012); NRBC Pct Auto 0.0 /100WBC (0.0-0.2); Platelet Count 247 X10*3/uL (160-400); Red Blood Count 4.69 X10*6/uL (4.20-5.50); White Blood Count 7.3 X10*3/uL (4.8-10.8)
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
--- OUTSIDE RECORDS SUMMARY | 2025-03-08 14:50 | XMS_ITS | Data Portability ---
Author Organization [facility] Saucedo [facility], Telehealth Address [address] [facility] [address] Assessment No assessment recorded. Plan of Treatment Reminders Order Date Submit Date Provider Last Modified By Organization Details Last Modified Time Details Appointments None recorded. Lab None recorded. Referral None recorded. Procedures None recorded. Surgeries None recorded. Imaging None recorded. Medication Orders amoxicilli n 875 mg tablet 2018 019 [id number], [address] [place], [address], 9 13:45:51 prednisone 20 mg tablet 2018 019 [id number], [address] [place], [address], 9 15:55:48 Patient TargetsNo targets recorded. Patient InstructionsNo instructions recorded. Reason for Referral None Reported. Problems Name Problem SNOMED Code Status Onset Date Resolution Date Notes Provider Name and Address Organization Details Recorded Time Disorder of gallbladder 04176485 Active 019 Ayana dickerson [facility] 9 13:17:56 Problem Notes None recorded. Medical Equipment None Reported. Allergies Allergen ID Allergen Name Allergen Category Reaction Reaction Severity Criticality Documentation Date Start Date Code Code System Note Provider Name and Address Organization Details Recorded Time 665 Cefzil medicatio n hives severe Not available 08/10/2018 06180 1 RxNorm Ayana dickerson [facility] 9 13:15:43 666 acetamino phen / hydrocodo ne medicatio n other severe Not available 08/10/2018 29389 2 RxNorm [facility] 9 13:16:13 667 Prevacid medicatio n hives severe Not available 08/10/2018 36122 RxNorm [facility] 9 13:16:39 [...] (BMI) Body weight Body temperature Oxygen saturation Heart rate Systolic And Diastolic Provider Name and Address Organization Details Last Updated DateTime 9 167.64 cm 21.3 kg/m2 88387.1 9 g 98.9 [degF] 93 % 87 /min 118/80 mm[Hg] Ayana [...] is your level of alcohol consumption? None [email or web address] Information not available 08/10/2018 Mental Status None recorded. Family History Relationship Description Onset Age of this Age Resolved Age Notes LastModified by Organization Details LastModified Time Unspecified Relation Heart disease [email or web address] Not available 08/10 13:19:16 Medical History No medical history recorded. Gynecological HistoryNo gynecological history recorded. Obstetrics History GPAL:G 0 P 0 0 0 0 Past Encounters Encounter ID Performer Location Encounter Start Date Encounter Closed Date Diagnosis/Indication Diagnosis SNOMED-CT Code Diagnosis ICD10 Code Diagnosis IMO Codes Diagnosis Note [id number] Poncho Bryant PA-C [facility] [address] [place] [address] 08/10/2018 12:54:08 08/10/2018 13:48:45 Acute right otitis media [id number] H66.91 patient reports a lot of GI [...] Member ID Guarantor Name 08/10/2018 1 NARENDRA [id number] Bronwyn Samuels [id number] Bronwny Clinton Mazinronald Notes Date Note Type Note [...] runny nose, cough. Poncho Bryant PA-C [address] [facility], [place], [address], [facility] 08/11/2018 13:42:33 OBGyn Episode No OBEpisode recorded.
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
[2025-03-08 15:57] LABS: Alanine Aminotransferase 15 U/L (0-31); Aspartate Amino Transferase 23 U/L (5-31); Estimated Glomerular Filt Rate > 60
== END 2025-03-08 10:18 ==
LOC: HO.HKASLDS 10:17
PROVIDERS: PCP Internal Medicine; Visit Provider Internal Medicine Rheumatology
DX: M19.041 Primary osteoarthritis, right hand (principal); M19.042 Primary osteoarthritis, left hand; M35.00 Sjogren syndrome, unspecified
CPT/HCPCS: 36415; 82565; 84165; 84450; 84460; 85025; 85652; 86140; 86160; 86431; 99212

== ENCOUNTER 2025-03-08 10:17 | Outpatient (AMB) | payer MEDICARE, SELFPAY ==
[2025-03-08 10:24] VITALS: BP 120/82; PULSE 92; O2SAT 95; BMI 22.7
--- NOTE | 2025-03-08 10:24 | A.OFFVIS_ITS ---
Vital Signs 03/08/25 10:24 Height 5 ft 4 in Weight 132 lb 4.438 oz BMI 22.7 BP 120/82 Blood Pressure Location Rt brachial Position Sitting Pulse 92 Pulse Source Pulse Oximeter Pulse Oximetry (%) 95 Oxygen Delivery Method Room Air Intake Visit Reasons: 6 Months Intake Note: Patient is here for follow up appointment for Sjogren's and osteoarthritis. Accompanied by: Self / Same As Patient Allergies oxycodone Allergy (Severe, Verified 03/08/25 10:24) short of breath esomeprazole Adverse Reaction (Mild, Verified 03/08/25 10:24) darkened urine cefzil Allergy (Mild, Uncoded 02/07/25 13:12) rash arithrimycin Allergy (Unknown, Uncoded 02/07/25 13:12) Rash HPI HPI 6 Months: Details: Completed OT. She is non compliant with home exercise program. Hand pain is not tolerated with repetitive movements such as making x-mas decorations or fine motor movements. Tylenol 650mg or ibuprofen 400mg PRN helps. Dryness is worse in eyes and mouth. Sometimes tongue feels like it is burning. After eating food is accumulating in mouth and she is manually taking it out and swishing with water. Nasal area is dry - using nasal spray QID, afren PRN and has a humidifer on at night. She is in physical therapy for management of headaches. She has teary when she speaks to me about having many medical problems and not adjusting well with her current health situation. PENDING SALE TO [facility] Medical History Chronic paronychia of finger Lichen sclerosus H/O Sjogren's disease Surgical History H/O dilation and curettage Hx of cholecystectomy [place] teeth removed Family History Mother Osteoarthritis Osteoporosis Hypertension Glaucoma Father Hypertension Osteoporosis Heart disease Brother Hypertension Multiple myeloma Physical Exam Vital Signs: Last Vital Signs Pulse 92 03/08/25 10:24 BP 120/82 03/08/25 10:24 Pulse Ox 95 03/08/25 10:24 Oxygen Delivery Method Room Air 03/08/25 10:24 BMI result Body Mass Index 22.7 Const Other: General: Comfortable CVS: RRR Respiratory: clear to auscultation bilaterally. Good respiratory effort Skin: No lesions seen Lymph nodes: No cervical lymphadenopathy present MSK: No tenderness of any joints. Heberden nodes present. No synovitis. Good range of motion upper extremity and lower extremity. Good glass checker strength. Assessment & Plan Assessment & Plan (1) Sjogren syndrome: Onset Date: ~01/13/25 Comment: Sicca symptoms are not controlled. She has developed burning mouth syndrome, which rarely can occur with Sjogren syndrome. On exam she does not have abnormality to suggest candidiasis infection. She is tolerating cevimeline BID despite having diaphoresis at times. Rheumatology History: Sjogren syndrome biopsy-proven with negative serologies CRISTOBAL/SSA/SSB. Pilocarpine ineffective for dry mouth and caused diaphoresis. Biotene products in effective. Cevimeline 01/10/2023 to present provides benefit because his diaphoresis, which is tolerable at this time. She did not like the taste of xylimelts. Biotene losenges at our gum provides temporary reli ef. Biotene mouthwash, tooth paste, mouth spray was ineffective. Code(s): M35.00 - Sjogren syndrome, unspecified Category: Medical Qualifiers: Sjogren organ or system involvement: without extraglandular involvement Qualified Code(s): M35.00 - Sjogren syndrome, unspecified Plan: I have asked her to follow up with ENT for oral exam due to development of burning mouth with consideration of treatment options to help alleviate her symptoms Continue cevimeline 30 mg BID. She will skip morning dose when diaphoresis/palpitations are not tolerable especially in the hot weather Continue hydration Continue daily dental hygiene and regular dental checkups for cavity prevention and cleaning Follow up with Ophthalmology for dry eye management Labs for disease monitoring ordered. Labs are due yearly Follow up with PCP for management of her anxiety, adjustment disorder with having multiple medical health conditions. I recommend that she seek PCP follow up for consideration of referral to a therapist and psychiatrist. Return to clinic in 6 months or sooner if needed (2) Osteoarthritis of hands, bilateral: Comment: Clinical diagnosis with subluxation of 5th DIPs with Heberden nodes left hand. She has had benefit with diclofenac gel and OT. She is not compliant with exerc ises learned from OT. No synovitis on exam to suggest active inflammatory arthritis secondary to Sjogren syndrome. Code(s): M19.041 - Primary osteoarthritis, right hand; M19.042 - Primary osteoarthritis, left hand Category: Medical Qualifiers: Osteoarthritis type: primary Qualified Code(s): M19.041 - Primary osteoarthritis, right hand; M19.042 - Primary osteoarthritis, left hand Plan: Resume OT home exercise program. I recommend that she restart gripping exercises including using her potty that was given to her by her occupational therapist Return to clinic in 6 months or sooner if needed Orders: Orders Complete Blood Count Auto Diff Today M35.00 - Sjogren syndrome, unspecified Aspartate Amino Transferase Today M35.00 - Sjogren syndrome, unspecified Erythrocyte Sedimentation Rate Today M35.00 - Sjogren syndrome, unspecified Complement C3 Today M35.00 - Sjogren syndrome, unspecified Complement C4 Today M35.00 - Sjogren syndrome, unspecified Alanine Aminotransferase Today M35.00 - Sjogren syndrome, unspecified C Reactive Protein Today M35.00 - Sjogren syndrome, unspecified Rheumatoid Factor Today M35.00 - Sjogren syndrome, unspecified Protein Electrophoresis, Serum Today M35.00 - Sjogren syndrome, unspecified Creatinine Today M35.00 - Sjogren syndrome, unspecified Coding Level of Care Code Est Pt Level 4 (09119) Add On Problem Visit Only Diagnoses Sjogren's syndrome without extraglandular involvement M35.00 Sjogren organ or system involvement: without extraglandular involvement Primary osteoarthritis of both hands M19.041; M19.042 Osteoarthritis type: primary
--- OUTSIDE RECORDS SUMMARY | 2025-03-08 12:49 | XMS_ITS | Patient Health Record ---
Author Organization [facility] Address [address] [place] [address] Care Team Providers Care [employer]ci Security Consultant Name Role Phone KARLEY RENO DO Primary Care Provider JOSE Grimse Unavailable [phone] Allergies Allergen (clinical drug ingredient) Drug/Non Drug Allergy documented on EMR Reaction Allergy Type Onset Date Status DECLOMYCIN (uncoded) Unknown Allergy Active azithromycin Azithromycin Unknown Drug Allergy A ctive cefprozil Cefprozil Unknown Drug Allergy Active atropine / hyoscyamine / phenobarbital / scopolamine Unknown Drug Allergy Active erythromycin Erythromycin Unknown Drug Allergy A ctive predniSONE Unknown Drug Allergy Active lansoprazole Prevacid Unknown Drug Allergy Acti ve moxifloxacin Moxifloxacin Unknown Drug Allergy A ctive Reason For Referral No Information Medications Medication SIG (Take, Route, Frequency, Duration) Notes Start Date End Date Status Omeprazole 20 MG Capsule Delayed Release 1 cap(s) orally once a day; Duration: 90 DAY(S) 03/02/2019 Active Vitamin D3 50 MCG (2000 UT) Capsule as directed orally once a day; Duration: 30 day(s) Active IBU-200 200 MG Tablet 1 tab(s) orally as needed only Active Omeprazole 40 MG Capsule Delayed Release 2 cap(s) orally twice a day; Duration: 30 day(s) 05/28/2018 Not-Taking TUMS 500 NEEDED ONLY *Please review f or potential replacement for e-prescription and drug interaction check* Active Omeprazole 20 MG Capsule Delayed Release 1 cap(s) orally once daily; Duration: 90 03/12/2018 Not-Taking Social History Tobacco Use: Social History Observation Description Date Details (start date - stop date) Never Smoker NA - NA Social History Tobacco Use: Social Info Question Answer Notes Smoking Are you a: never smoker Additional Details Category Social Info Options Details General 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 Past year's travels: [place],Christine [place] 10/23/2017 09:46:32 AM > within [place] only alcohol use: yes rarely drug use: no Hobbies/Exercise habits: walking , household stairs Coffee/Tea/Soda: yes soda- Sprite, w eak coffee occasionally Marital Status Living with smokers in household no Section Notes: Never smoker SP Never smoker SP Never smoker SP Problems Problem Type SNOMED Code ICD Code Onset Dates Problem Status W/U Status Risk Notes Problem Gastroesophageal reflux disease without esophagitis (358047648) Gastroesophageal reflux disease without esophagitis (K21.9) Active confirmed Problem Globus sensation (429232059) Globus sensation (F45.8) Active confirmed Problem Irritable bowel syndrome (96723920) Irritable bowel syndrome with both constipation and diarrhea (K58.2) Active confirmed Problem Gastroesophageal reflux disease (842265165) Nonerosive esophageal reflux disease (K21.9) Active confirmed Plan Of Treatment No Information Insurance Providers Payer Name Payer Address Payer Phone Subscriber Number Group Number Insured Name Patient Relationship to Insured Coverage Start Date Coverage End Date [employer] OPEN ACCESS [address] [place] [address] [phone] [id number] OWEN HOBSON Self - patient is the insured Medical (General) History Medical History History ICD Code Lopez cyst GERD Allergies Arthritis IBS Kidney disease Osteopenia post gallbladder disorder hearing loss (deaf in R ear) - 2017 EGD 12/22/2017 - Benign appe aring esophageal stenosis. Dilated. Path: squamous mucosa without pathologic change radiating chest pain kidney stones Post gallbladder disorder Surgical History Surgery Date(Month/Year) Tooth extraction 1976 Dilation & curettage x4 [phone] Cholecystectomy 2006 Cataract surgery 2012 Hospitalization History Reason Date(Month/Year) [facility] ER/admission - cardiac 2017
--- OUTSIDE RECORDS SUMMARY | 2025-03-08 12:49 | XMS_ITS | Clinical Summary ---
Author Organization [facility] [address] [facility] Address [address] [place] [address] Phone Care Team Providers Care Legal Investigator Name Role Phone Bo Clayton MD Primary Care Provider [phone] Allergies Active Allergy Reactions Criticality Noted Date [...] hours if needed for mild pain. Active gabapentin (NEURONTIN) 100 mg capsule Take 1 capsule (100 mg total) by mouth 3 (three) times a day. Active hyoscyamine (ANASPAZ,LEVSIN) 0.125 mg tabletIndication s:Irritable bowel syndrome with both constipation and diarrhea TAKE 1 TABLET (0.125 MG TOTAL) BY MOUTH EVERY 6 (SIX) HOURS IF NEEDED FOR CRAMPING OR DIARRHEA. 120 tablet 02/15/20 25 025 Active hyoscyamine (ANASPAZ,LEVSIN) 0.125 mg tabletIndication s:Irritable bowel syndrome with both constipation and diarrhea Take 1 tablet (0.125 mg total) by mouth every 6 (six) hours if needed for cramping or diarrhea. 60 tablet 01/29/20 25 025 Discontinued Active Problems Problem Noted Date Diagnosed Date Irritable bowel syndrome wit h both constipation and diarrhea 08/27/2024 Assessment & Plan (01/28/2025 12:12 PM EST): Orders: hyoscyamine (ANASPAZ,LEVSIN) 0.125 mg tablet; Take 1 tablet (0.125 mg total) by mouth every 6 (six) hours if needed for cramping or diarrhea. Gastroesophageal reflux disease without esophagi tis 08/27/2024 Osteoporosis 08/27/2024 Sjogren's disease 08/27/2024 Encounters Date Type Department Care Team Description 03/07/2025 Telephone Gastroenterology - [address] [place] [address] [phone] Kim Roque MD 01/28/2025 10:20 AM EST Office Visit Gastroenterology - [address] [phone] Kim Roque MD Irritable bowel syndrome with diarrhea (Primary Dx); Irritable bowel syndrome with both constipation and diarrhea 12/14/2024 Telephone Gastroenterology - [address] [phone] Kim Roque MD from Last 3 Months Surgical History Surgery Date Site/Laterality Comments COLONOSCOPY 12/22/2021 - 01/21/2022 left sided tics, int rhoids ([address] yr) [address] Roque ESOPHAGOGASTRODUODENOSCOPY 12/22/2021 - 01/21/[address] Roque CHOLECYSTECTOMY Medical History Medical History Date Comments IBS (irritable bowel syndrome) Osteopenia Nephrolithiasis Social History Tobacco Use Types Packs/Day Years Used Date Smoking Tobacco: Never Smokeless Tobacco: Never Tobacco Cessation:Counseling Given: Not Answered [...] - Inhaled Oxygen Concentration - - Weight 58.9 kg (129 lb 12.8 oz) 025 10:21 AM EST Height 165.1 cm (5' 5 ) 01/28/2025 10:2 1 AM EST Body Mass Index 21.6 01/28/2025 10:21 AM EST Plan of Treatment Health Maintenance Due Date Last Done Comments Pneumococcal Vaccine: 50+ Years (1 of 2 - PCV) 1977 Zoster Vaccines (1 of 2) 2008 Breast Cancer Screening 01/10/2020 01/09/2018 Hepatitis C Screening 02/19/2022 Medicare Annual Wellness Visit 02/19/2022 Social Influencers of Health Screening 02/19/2022 Falls Risk Assessment 12/20/2023 Depression Screening 03/24/2024 COVID-19 Vaccine ( season) 2024 01/30/2024, 01/15/2023, 01/23/2022, Additional history exists Osteoporosis Screening (Bone Density Screening) 07/08/2026 07/08/2016 DTaP,Tdap,and Td Vaccines (5 - Td or Tdap) 08/03/2027 08/02/2017, 02/21/2011, 06/05/2008, Additional history exists Colorectal Cancer Screening: Colonoscopy 10/19/2034 10/19/2024 RSV Immunization Adult Patients Completed 04/02/2024 Influenza Vaccine Completed 12/31/2024, , 12/26/2022, Additional history exists HIB Vaccines Aged Out No longer eligi [...] 2:14 PM EDT from Last 3 Months or Most Recently Relevant to Health Maintenance Results * COLONOSCOPY (10/19/2024 2:14 PM EDT) Anatomical Region Laterality Modality Endoscopy us Historical Provider GI~PROCEDURE ORDERABLES F inal Result from Last 3 Months or Most Recently Relevant to Health Maintenance Insurance [employer] MEDICARE ADVANTAGE Care Teams Legal Investigator Relationship Specialty Start Date End Date Bo Clayton MD [address] [place] [address] PCP - General 08/07/22
--- OUTSIDE RECORDS SUMMARY | 2025-03-08 12:49 | XMS_ITS ---
Author Name [facility] Organization Unknown Care Team Organization Name Specialty Phone Email Start Date End [facility] DELMIS COLLIER Primary Care 03/03/2025
--- OUTSIDE RECORDS SUMMARY | 2025-03-08 12:49 | XMS_ITS | Encounter Summary ---
Author Organization [facility] Address [address] [place] [address] Phone Care Team Providers Care Sales Marketing Manager Name Role Phone Jasper Lucia DO Primary Care Provider Bo Clayton MD Primary Care Provider [phone] Encounter Details Date Type Department Care Team (Latest Contact Info) Description 09/01/2020 Transcribe Orders Virtual Department [address] [place] [address] Eh Duran MD [address] [place] [address], [address] [place] [address] [email or web address] TIA (transient ischemic attack) (Primary Dx) [...] stenosis relative to distal ICA diameters. us Eh Duran MD US NEUROVASCULAR Final Re sult documented in this encounter Visit Diagnoses Diagnosis TIA (transient ischemic attack)- Primary Unspecified transient cerebral ischemia TIA (transient ischemic attack) Unspecified transient cerebral ischemia documented in this encounter Care Teams Sales Marketing Manager Relationship Specialty Start Date End Date Jasper Lucia DO [address] [facility] [place] [address] PCP - General Family Medicine 04/27/18 10/09/20 Bo Clayton MD [address] [place] [address] PCP - General Internal Medicine 10/10/20 documented as of this encounter Additional Source Comments The information contained in this document represents components of the legal health record. It is not the complete legal health record.[facility]
--- OUTSIDE RECORDS SUMMARY | 2025-03-08 12:49 | XMS_ITS | Clinical Summary ---
Author Organization [facility] Address [address] [place] [address] Care Team Providers Care Private Tutor Name Role Phone Bo Clayton MD Primary Care Provider [phone] Social History Tobacco Use Types Packs/Day Years Used Date Smoking Tobacco: Never Assessed Comments Unknown Sex and Gender Information Value Date Recorded Sex Assigned at Female 03/03/2025 1:33 PM EST Legal Sex Female 9:41 AM EDT Gender Identity Female 03/03/2025 1:33 PM EST Sexual Orientation Not on file Plan of Treatment Upcoming Encounters Date Type Department Care Team (Late st Contact Info) Description 05/04/2025 2:00 PM EST Consult [facility] [address] [phone] Kim Roque MD [address] [place] [phone] Health Maintenance Due Date Last Done Comments Advance Care Planning 1960 Hepatitis C Virus Screening 1960 DTaP/Tdap/Td Vaccines (1 - Tdap) 1977 Mammogram 1998 Colonoscopy 12/20/2003 Pneumococcal Vaccines 50+ (1 of 1 - PCV) 2008 Zoster (Shingles) Vaccine (1 of 2) 2008 DXA Bone Density (Females,Ag es 65 and older) 12/20/2023 Influenza Vaccine 10/22/2024 12/14/2013 COVID-19 Vaccine ( - 2024-2 6 season) 2024 RSV Vaccine 50 years and old er and Patients (1 - 1-dose 75+ series) 2033 Hepatitis B Vaccines Aged Out No long er eligible based on patient's age to complete this topic Insurance BLUE CROSS [place] MEDICARE OUT OF NETWORK Care Teams Private Tutor Relationship Specialty Start Date End Date Bo Clayton MD [address] [place] [address] PCP - General 03/03/25
--- OUTSIDE RECORDS SUMMARY | 2025-03-08 12:49 | XMS_ITS | Encounter Summary ---
Author Organization [facility] Address [address] [place] [address] Care Team Providers Care Auctioneer Art Name Role Phone Bo Clayton MD Primary Care Provider [phone] Reason for Visit * Reason Onset Date Comments questions about colace 03/07/2025 Encounter Details Date Type Department Care Team ([facility] st Contact Info) Description 03/07/2025 Telephone Gastroenterology - [address] [place] [address] [place] [phone] Kim Roque MD [address] [place] [address] Social History Tobacco Use Types Packs/Day Years Used Date Smoking Tobacco: Never Smokeless Tobacco: Never Alcohol Use Standard Drinks/Week Comments Never 0 (1 standard drink = 0.6 oz pur e alcohol) Comments Unknown Sex and Gender Information Value Date Recorded Sex Assigned at Not on file Legal Sex Female 9:47 AM EST Gender Identity Not on file Sexual Orientation Not on file documented as of this encounter Progress Notes * Jennifer Casillas - 03/07/2025 12:59 PM EST Patient called regarding her recent OV with Dr. Roque on 01/28. Dr. Roque recommended that she try Colace, but she wanted to see how dependent she should be on the Colace and how often she should taking it documented in this encounter Plan of Treatment Not on file documented as of this encounter Visit Diagnoses Not on filedocumented in this encounter Care Teams Auctioneer Art Relationship Specialty Start Date End Date Bo Clayton MD [address] [place] [address] PCP - General 08/07/22 documented as of this encounter
--- OUTSIDE RECORDS SUMMARY | 2025-03-08 12:50 | XMS_ITS | Clinical Summary ---
Author Organization [facility] Address [address] [facility] [address] [place] [address] Phone Care Team Providers Care Shactor Name Role Phone Bo Clayton MD Primary Care Provider [phone] Allergies Active Allergy Reactions Criticality Noted Date Comments Moxifloxacin Diarrhea 02/09/2020 Cefprozil 02/09/2020 Zkiltdkpf-Niyosa-Ofxuxwzs-Scop Diarrhea,Dizziness 02/09/2020 Erythromycin 02/09/2020 Hydrocodone-Acetaminophen 02/09/2020 Oxycodone [...] according to food tolerance. Follow closely with customer account specialist/dietitian & if needed with director of speech pathology Assessment & Plan (02/12/2020 3:25 PM EST): Adjust diet according to food tolerance. Follow closely with customer account specialist/dietitian & if needed with director of speech pathology Environmental and seasonal allergies 02/09/2020 Assessment & Plan (05/12/2020 12:35 PM EST): Avoid known allergens and continue close follow-up with oncology research rn as scheduled. Assessment & Plan (02/12/2020 3:29 PM EST): Avoid known allergens and continue close follow-up with oncology research rn as scheduled. Sudden-onset sensorineural hearing loss 02/09/20 20 Assessment & Plan (02/12/2020 3:23 PM EST): Continue close follow-up with ENT as scheduled- I have requested records for review. 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 -steroidal anti-inflammatories (NSAID) [...] DEPRESSION SCREENING 1970 HEPATITIS C SCREENING 1976 MAMMOGRAM 1998 COLOGUARD 12/20/2003 COLONOSCOPY 12/20/2003 [...] topic Medical Devices Not on file Insurance [employer] P[employer]PO [employer] [place] [employer] [employer] [place] [address] [address] [place] [address] [employer]PO [facility] [employer] [place] [address] [employer] PPO Care Teams Shactor Relationship Specialty Start Date End Date Bo Clayton MD [address] [place] [address] [address] [place] [address] PCP - General Internal Medicine 10/10/20 Additional Source Comments The information contained in this document represents components of the legal health record. It is not the complete legal health record.[facility]
== END 2025-03-08 11:13 | disposition home or self-care (01) ==
LOC: HO.RHES 10:18
PROVIDERS: PCP Internal Medicine; Visit Provider Internal Medicine Rheumatology
DX: M35.00 Sjogren syndrome, unspecified (principal); M19.041 Primary osteoarthritis, right hand; M19.042 Primary osteoarthritis, left hand
CPT/HCPCS: 99214; G2211